=== PATIENT | male | born 1955 | race Caucasian/White ===

== ENCOUNTER → 2016-12-02 | Day surgery (SDC) | payer OTHER ==
[2016-11-20 09:38] VITALS: Ht 170.2 cm; Wt 106.8 kg
[~2016-12-02] VITALS: Ht 170.2 cm; Wt 106.8 kg
[~2016-12-02] MED LIST: ATOR-22 PO; ATROPINE SULFATE 0.1 MG/ML 5ML SYR IV PRN; BUPIVACAINE 0.5 % 5 MG/1 ML PF 10ML VIAL ONE; CEFAZOLIN 2000 MG/60 ML D5W IV SCH; EpHEDrine SULFATE INJ 50 MG/ML AMP IV PRN; FENTANYL CITRATE INJ 50 MCG/1 ML 2 ML VIAL IV PRN; FENTANYL CITRATE INJ 50 MCG/1 ML 2 ML VIAL ONE; FIBEPOW PO; HYDR-5688 PO; LACTATED RINGER'S 1000ML 1,000 ML IV SCH; LIDOCAINE HCL 1% 20 ML VIAL ONE; LIDOCAINE HCL 2% 2 ML VIAL (20MG/ML) ONE; LSN/10125 PO; MIDAZOLAM HCL 1 MG/ML 2ML VIAL ONE; NAPR1TAB9 PO; ONDANSETRON INJ 2 MG/ML 2 ML VIAL IV PRN; OXYCODONE/ACETAMINOPHEN 5-325 TAB PO PRN; PROPOFOL IV EMULSION 10 MG/ML 20 ML VIAL IV ONE; SODIUM CHLORIDE 0.9% 1000ML 1,000 ML IV SCH
--- NOTE | 2016-12-02 06:44 | History & Physical Bridge - [place] ---
H&P Re-Evaluation Bridge Note: I have examined the patient, reviewed the History & Physical and in the interval since the performance of the History & Physical I have noted the following changes of clinical significance: No changes noted
[2016-12-02 07:41] VITALS: TEMP 36.6
--- NOTE | 2016-12-02 07:41 | [facility] Post Operative Brief Note ---
Immediate Operative Summary Operative Date Dec 02, 2016. Pre-Operative Diagnosis Right Carpal Tunnel Syndrome Post-Operative Diagnosis Same Procedure(s) Performed Right Carpal Tunnel Release Surgeon Dr. Gil Spider Assembler Surgeon(s) Aileen Tolliver PA-C Estimated Blood Loss None Findings ABOVE Specimens None Anesthesia LOCAL IV SEDATION Complication(s) None Disposition
--- NOTE | 2016-12-02 07:44 | Discharge Instructions-SurgCtr ---
Discharge Instructions Date of Service Dec 02, 2016. Visit Reason for Visit: Right Wrist Carpal Tunnel Syndrome Discharge Discharge Diagnosis / Problem: SAME ABOVE Discharge Goals Goal(s): Decrease discomfort, Improve function Activity Recommendations Activity Limitations: as noted below Lifting Limitations: until after follow-up appointment Exercise/Sports Limitations: until after follow-up appointment Shower/Bathe: keep incision dry Anesthesia . Post Anesthesia Instructions: If you have had General Anesthesia or IV Sedation: * Do not drive today. * Resume driving when surgeon permits. * Do not make important decisions or sign legal documents today. * Call surgeon for: 1. Temperature elevations greater than 101 degrees F. 2. Uncontrollable pain. 3. Excessive bleeding. 4. Persistent nausea and vomiting. 5. Medication intolerance (nausea, vomiting or rash). * For nausea and vomiting use only clear liquids such as: tea, soda, bouillon until nausea subsides, then gradually increase diet as tolerated. * If you have any concerns or questions, call your surgeon's office. If physician is unavailable and it is an emergency, call 911 or go to the nearest emergency room. . Instructions / Follow-Up Instructions / Follow-Up MEDICATIONS: * Resume previous medications unless instructed otherwise by your surgeon. * Always take pain medication on a full stomach or with food to avoid upset stomach. * Do not drink alcohol or drive while taking narcotics. * Ibuprofen or Tylenol may be taken if narcotic not needed. SPECIAL CARE INSTRUCTIONS: __ None _X_ Keep extremity elevated and iced x 48 hours; apply ice 20-30 minutes 8-10 times/day. May remove at night. __ Sling __24 hrs/day __ Remove at night __ Shoulder Immobilizer __ 24 hrs/day __ Remove at night _X_ Dressing _X_ Maintain until seen in office, may shower with plastic over site __ Remove dressings in 24-48 hours and then may shower __ Cover incisions with band-aids after showering __ Do not remove steri-strips Call physician if chills or temperature rises above 102 degrees or pain unrelieved by prescribed pain medications at . . Diet Recommendations Home Diet: resume previous diet Procedures Procedures Performed: Right Carpal Tunnel Release Pending Studies Studies pending at discharge: no Medical Emergencies . Who to Call and When: Medical Emergencies: If at any time you feel your situation is an emergency, please call 911 immediately. . Non-Emergent Contact Non-Emergency issues call your: Primary Care Provider . . "Provider Documentation" section prepared by Derrell Tolliver. .
[2016-12-02 08:05] VITALS: BP 133/82; PULSE 74; O2SAT 96
--- NOTE | 2016-12-02 08:05 | Anesthesia Progress Nt - [facility] ---
Anesthesia Post Op Note Date & Time Dec 02, 2016 at 08:05 Vital Signs Pain Intensity: 0 Vital Signs Past 12 Hours Date Time Temp Pulse Resp B/P (MAP) Pulse Ox O2 Delivery O2 Flow Rate FiO2 12/02/16 07:41 36.6 80 16 129/69 (89) 94 Room Air 12/02/16 06:28 36.7 80 20 127/82 (97) 93 Room Air Notes Mental Status: alert / awake / arousable, participated in evaluation Pt Amnestic to Procedure: Yes Nausea / Vomiting: adequately controlled Pain: adequately controlled Airway Patency, RR, SpO2: stable & adequate BP & HR: stable & adequate Hydration State: stable & adequate Anesthetic Complications: no major complications apparent
--- NOTE | 2016-12-04 09:01 | OPERATIVE REPORT ---
DATE OF SURGERY: 12/02/16 PREOPERATIVE DIAGNOSIS: Right carpal tunnel syndrome. POSTOPERATIVE DIAGNOSIS: Same. PROCEDURE: Decompression median nerve release transverse carpal ligament, right wrist. SURGEON: Dr. Gil. CLAIMS CORRESPONDENCE CLERK: Derrell Tolliver PA-C. ANESTHESIOLOGIST: Dr. Moya. ANESTHESIA: Local with IV sedation. DRAINS: None. COMPLICATIONS: None. CONDITION: The patient tolerated the procedure well and returned to the recovery room in apparent satisfactory condition. INDICATIONS FOR SURGERY: Arden is a 61-year-old male who has had increasing pain, numbness, and tingling in his right hand consistent with carpal tunnel syndrome. We went over treatment options and elected to go ahead and proceed with surgery. Procedure, expected outcomes, side effects, and risks were all explained in detail. DESCRIPTION OF PROCEDURE: Patient was taken to the OR, at which time he was placed supine on the operating table. The right hand was prepped and draped in the usual sterile fashion for this surgery. The anticipated incision site was infiltrated with 1% Xylocaine without epinephrine. A forearm tourniquet was placed up to 250 mmHg. Incision was made vertically over the transverse carpal tunnel ligament area using loupe magnification dissected down and the transverse carpal ligament was divided with a 15-blade and tenotomy scissors. Small portion of the forearm fascia was divided also with the scissors. The wound was inspected and the nerve was freed up. No other masses or abnormalities were noted. Wound was then copiously irrigated and electrocautery was used to control the areas of bleeding. The skin was then closed with interrupted 4-0 nylon suture. Marcaine without epinephrine was placed in the skin edges. We placed a sterile dressing of Xeroform, 4 x 4, soft roll and an Richard bandage. Patient was returned back to recovery room in apparent satisfactory condition.
== END | disposition home or self-care (01) ==
LOC: X.SURG 06:13
PROVIDERS: ATTEND Orthopaedic Surgery
DX: G56.01 Carpal tunnel syndrome, right upper limb (principal); E78.00 Pure hypercholesterolemia, unspecified; I10 Essential (primary) hypertension

== ENCOUNTER 2024-04-19 12:38 | Inpatient (IN) ==
[2024-04-19 13:30] LABS: Basophils # (auto) 0.04 K/uL (0.00-0.20); Basophils % (auto) 0.2 %; Eosinophils # (auto) 0.04 K/uL (0.00-0.50); Eosinophils % (auto) 0.2 %; Hemoglobin 16.4 g/dl (14.0-18.0); Immature Granulocytes # (auto) 0.09 K/uL (0.01-0.20); Immature Granulocytes % (auto) 0.4 %; Lymphocytes % (auto) 3.9 %; Mean Corpuscular Hemoglobin 30.6 pg (25.0-34.0); Mean Corpuscular Hgb Conc 33.5 g/dL (32.0-36.0); Mean Corpuscular Volume 91.4 fL (80.0-100.0); Mean Platelet Volume 8.6 fL (9.4-12.4); Monocytes # (auto) 2.54 K/uL (0.11-0.59); Monocytes % (auto) 12.5 %; Neutrophils # (auto) 16.79 K/uL (1.40-6.50); Neutrophils % (auto) 82.8 %; Platelet Count 435 K/uL (130-400); RDW Coefficient of Variation 12.1 % (11.5-14.5); RDW Standard Deviation 40.2 fL (36.4-46.3); Red Blood Count 5.36 M/uL (4.70-6.10)
[2024-04-19 13:45] LABS: Alanine Aminotransferase 19 U/L (7-52); Albumin Globulin Ratio 1.1 (0.9-2); Albumin Level 4.2 gm/dl (3.4-5.0); Alkaline Phosphatase 75 U/L (34-104); Anion Gap 10 (3-11); Aspartate Aminotransferase 15 U/L (13-39); BUN Creatinine Ratio 22.5 (10-20); Bilirubin,Total 1.2 mg/dl (0.2-1.0); Blood Urea Nitrogen 18 mg/dl (6-23); Calcium 10.3 mg/dl (8.6-10.3); Carbon Dioxide 24 mmol/L (21-32); Chloride 100 mmol/L (98-107); Globulin 3.8 gm/dl (2.5-4.0); Glucose 116 mg/dl (70-99(Fasting)); Potassium 4.9 mmol/L (3.5-5.1); Sodium 134 mmol/L (136-145)
[2024-04-19 14:15] LABS: Influenza A virus by PCR Negative (Neg); Influenza B virus by PCR Negative (Neg); RSV by PCR Negative (Neg); SARS CoV2 RNA(COVID-19) Ceph NEGATIVE (Negative)
[2024-04-19] MEDS: fentaNYL citrate PF 100 MCG/2 ML VIAL IV STA (14:23)
[2024-04-19] MEDS: SODIUM CHLORIDE 0.9% 1,000 ML IV ONE (14:23)
--- NOTE | 2024-04-19 14:31 | Emergency Department Note ---
Impression & Plan Weakness, Acute pain of left hip, Acute pain of right knee, Bilateral shoulder pain, Ambulatory dysfunction ED Provider Note Provider: Christian Manjarrez MD DATE OF SERVICE: 04/19/2024 CHIEF COMPLAINT: Ambulatory issues, joint pain HISTORY OF PRESENT ILLNESS: Patient is a 69-year-old gentleman past medical history of hypertension, hyperlipidemia, bilateral hip replacement, left knee replacement in the past with Dr. Anderson presenting here today via ambulance from home. According to and the patient initially he was here just over 2 weeks ago for pain in the right wrist. Saw orthopedics after ER evaluation with negative x-ray and had steroid injection as was believed to be more arthritic in nature. Patient completed Medrol Dosepak last week. Lasted 3 to 4 days worsening pain in the left hip as well as the right knee and to some degree the left knee. No falls but significant difficulty even ambulating prickly worse this morning. Has been using oxycodone at night to help with the pain so he could sleep. reports possibly a fever of 101 this morning but she had an old thermometer. Patient denies cough or cold symptoms or trouble breathing. Denies abdominal pain or nausea or vomiting. Some pain in left hip but no testicular/genital pain reported. Some constipation for several days as has been using pain medicine and decreased appetite. No vomiting again. Denies chest pain report pains in bilateral shoulder and clavicle is worse with some movement. No rashes. No wounds reported. Is able to bend the right knee some now but it still hurts and has a bit of swelling here. No ankle swelling or pain. No pain in the left arm reported. A bit of posterior headache into the neck. No confusion reported. Does report left knee replacement in the past to the right knee has had ACL repair and arthroscopy/meniscal repair in the past. Bilateral hip repair in the past with Dr. Anderson. PAST MEDICAL HISTORY: As noted above MEDICATIONS: Reviewed home medications SOCIAL HISTORY: lives at home PHYSICAL EXAM: GENERAL: alert and oriented in no acute distress on stretcher Head: normocephalic and atraumatic EYES: No injection, discharge or icterus. EOMI. NECK: Trachea midline. Supple without significant tenderness. ENT: Mucous membranes pink and moist. LUNGS: Airway patent. No retractions. Breath sounds clear with good air entry bilaterally. HEART: Regular tachycardic rate and rhythm. No chest wall tenderness with some mild tenderness of the bilateral clavicles to shoulders. ABDOMEN: Soft and non-tender, without guarding or rebound. SKIN: Acyanotic, warm, dry, without rashes EXTREMITIES: Without swelling or deformity of the lower legs with healed scars of the bilateral knees mild swelling and pain with ROM of the right knee but no redness or wound appreciable. No significant calf tenderness or swelling. No tenderness of the left arm wrist or hand. Right wrist in a Velcro brace and patient is having some difficulty with machine hoop maker here and little bit of numbness in these fingers by report. No evidence of compartment syndrome on exam. Some slight bilateral pain in the shoulders prickly with movement. NEUROLOGICAL: No aphasia. No facial droop or slurred speech. Sensation to gross touch normal other than reported some mildly diminished sensation in the right fingers and thumb. Limited mobility and strength of the right wrist left hip and right knee due to pain of these joints. EK bpm. Sinus tachycardia. No PVC or PAC. No acute ST segment elevation or depression with left axis and QTc of 454. CONTINUOUS CARDIAC MONITORING: was ordered and showed a heart rate of 100-110s bpm in sinus tachycardia Patient's laboratory studies and imaging reviewed. Differential includes Infection, dehydration, metabolic abnormality, hypo/hyperglycemia, electrolyte disturbance, anemia, hypoxia, cardiac sources, intracerebral event, toxicologic, neurologic, as well as other pathologies. IMPRESSION/MEDICAL DECISION MAKING: Patient without trauma having scattered joint type pains. Completed steroids a week ago but still with significant leukocytosis of 20 here. Do question if there is an occult infectious process at play. Negative COVID RSV flu testing. Denies URI symptoms. Benign abdomen on exam. A bit of swelling but no redness to the right knee is some pain with motion here. Some pain with motion of the left hip as well with prior replacement. Will obtain x-rays here as well as a chest x-ray given some of the clavicular pain. Does not appear confused or altered. Doubt CVA or meningitis at this time. Again with a leukocytosis lactate, blood cultures, UA, Lyme test, inflammatory markers, and procalcitonin added to look for an infectious etiology. Symptoms could simply be muscular but given the significant discomfort she is having even with oxycodone unable to ambulate feel that broad-spectrum antibiotic coverage till further differentiation and further observation with his ambulatory dysfunction is indicated. Discussed with patient and and they are in agreement. Given a liter of normal saline here for fluid hydration. He is afebrile here but again somewhat tachycardic. ESR CRP are both significantly elevated. Again with the multiple complaints of wrist and right knee and left hip pain unsure which of these joints may be possibly issue or if it simply a symptom of systemic illness. Question bacteremia. Will cover empirically with broad-spectrum IV ceftriaxone. Blood cultures pending. Discussed with the hospitalist team for further care here. Low suspicion for DVT or PE at this time. DIAGNOSIS: Joint pain, weakness, ambulatory dysfunction DISPOSITION: Hospitalist will evaluate Patient was agreeable with this plan. Past Med/Surg History Problem List (Updated 04/19/24 @ 21:13 by Christian Manjarrez M.D.) Ambulatory dysfunction (Acute) Bilateral shoulder pain (Acute) Acute pain of right knee (Acute) Acute pain of left hip (Acute) Weakness (Acute) Rotator cuff tear arthropathy of left shoulder Synovitis of right wrist Status post right hip replacement (~01/2024) Osteoarthritis of right hip Status post carpal tunnel release Status post left hip replacement Status post left knee replacement Encounter for pre-operative examination HLD (hyperlipidemia) HTN (hypertension) Medical History Osteoarthritis Type 2 diabetes mellitus Noted per PCP/[facility] records HGBA1C 11/11/23 6.8% Obesity HLD (hyperlipidemia) HTN (hypertension) Surgical History Status post left knee replacement (07/2021) Status post left hip replacement Left MAMI, SAB at [facility] (10/27/22) History of carpal tunnel release of both wrists right 2019, left 2023 History of arthroscopy (2021) R/L knees History of repair of rotator cuff R/L History of colonoscopy Family History Father Diabetes Other No family history of adverse response to anesthesia Social History Smoking Status: Never smoker Tobacco Type: Smokeless Tobacco (Dip or Chew) Second Hand Exposure: No; Do You Dip or Chew Tobacco: Yes; Tobacco Cessation Education Requested by Patient: No Hx Alcohol Use: No Hx Substance Use: No Preferred Language: Austrian Communication Ability: Effective Poker Machine Attendant Required: No Beliefs That Will Affect Care: None Current Living Situation: Spouse current occupational status: retired Other Information That Helps Us Care for You: No Feels Safe at Home: Yes Safety Concerns: Feels Safe At This Time Assistive Devices: Glasses Allergies Allergies Allergy/AdvReac Type Severity Reaction Status Date / Time No Known Allergies Allergy Verified 02/01/24 07:52 Home Meds Home Medications Medication Instructions Recorded Confirmed atorvastatin 20 mg tablet 20 mg PO QAM 11/29/20 04/19/24 lisinopril 10 1 tab PO QAM 11/29/20 04/19/24 mg-hydrochlorothiazide 12.5 mg tablet psyllium husk 3.4 gram/5.4 gram 1 tbsp PO QAM PRN Constipation 11/29/20 04/19/24 oral powder (Metamucil) polyethylene glycol 3350 17 gram 17 g PO DAILY 02/01/24 04/19/24 oral powder packet (Miralax) Previous Rx's Medication Instructions Recorded amoxicillin 500 mg tablet 2,000 mg (4 x 500 mg) PO ONCE PRN 11/06/21 prophylaxis #4 tabs oxycodone 5 mg tablet 5 mg PO Q6H PRN pain #30 tabs 02/01/24 Results & Data (ED) Vital Signs Vital Signs - 24 hr 04/19/24 12:48 04/19/24 14:33 04/19/24 15:15 Temperature 36.5 C Temperature Source Temporal Artery Scan Pulse Rate 105 H 107 H Pulse Rate [Right Finger] 102 H Pulse Rhythm [Right Finger] Regular Pulse Strength [Right Finger] Normal Respiratory Rate 20 21 Respiratory Effort / Characteristics Non-Labored Spontaneous Non-Labored Respiratory Depth Normal Normal Respiratory Pattern Regular Blood Pressure 120/82 Blood Pressure [Right Arm] 142/97 H Blood Pressure Mean 94 Blood Pressure Mean [Right Arm] 112 Blood Pressure Position [Right Arm] Lying Pulse Oximetry 97 96 Oxygen Delivery Method Room Air Room Air Sepsis Recent Fever Within 48 Hours No Sepsis New/Unexplained Change in Mental Status No Sepsis Action Taken by Nursing No Action Required Laboratory Data 04/19/24 13:05 04/19/24 13:05 Lab Results 04/19/24 04/19/24 04/19/24 Range/Units 13:05 13:06 14:38 WBC 20.30 H (4.8-10.8) K/ul RBC 5.36 (4.70-6.10) M/uL Hgb 16.4 (14.0-18.0) g/dl Hct 49.0 (42.0-52.0) % MCV 91.4 (80.0-100.0) fL MCH 30.6 (25.0-34.0) pg MCHC 33.5 (32.0-36.0) g/dL RDW Std Deviation 40.2 (36.4-46.3) fL RDW Coeff of Delores 12.1 (11.5-14.5) % Plt Count 435 H (130-400) K/uL MPV 8.6 L (9.4-12.4) fL Immature Gran % (Auto) 0.4 % Neut % (Auto) 82.8 % Lymph % (Auto) 3.9 % [place] % (Auto) 12.5 % Eos % (Auto) 0.2 % Baso % (Auto) 0.2 % Neut # (Auto) 16.79 H (1.40-6.50) K/uL Lymph # (Auto) 0.80 L (1.20-3.40) K/uL [place] # (Auto) 2.54 H (0.11-0.59) K/uL Eos # (Auto) 0.04 (0.00-0.50) K/uL Baso # (Auto) 0.04 (0.00-0.20) K/uL Immature Gran # (Auto) 0.09 (0.01-0.20) K/uL ESR 113 H (0-20) mm/hr Sodium 134 L (136-145) mmol/L Potassium 4.9 (3.5-5.1) mmol/L Chloride 100 (98-107) mmol/L Carbon Dioxide 24 (21-32) mmol/L Anion Gap 10 (3-11) BUN 18 (6-23) mg/dl Creatinine 0.80 (0.6-1.4) mg/dl Est Cr Clr Drug Dosing Not Reportable eGFR 96.40 BUN/Creatinine Ratio 22.5 H (10-20) Glucose 116 H (70-99(Fasting)) mg/dl Lactate 1.6 (0.4-2.0) mmol/L Calcium 10.3 (8.6-10.3) mg/dl Total Bilirubin 1.2 H (0.2-1.0) mg/dl AST 15 (13-39) U/L ALT 19 (7-52) U/L Alkaline Phosphatase 75 (34-104) U/L Total Creatine Kinase 13 L (30-223) U/L Troponin I High Sens 5.6 (0-20) pg/ml C-Reactive Protein 24.83 H (0-0.5) mg/dl Total Protein 8.0 (6.0-8.3) gm/dl Albumin 4.2 (3.4-5.0) gm/dl Globulin 3.8 (2.5-4.0) gm/dl Albumin/Globulin Ratio 1.1 (0.9-2) Procalcitonin 0.23 (0-0.5) ng/ml Lyme Disease Screen Negative (Negative) SARS-CoV-2 (PCR) NEGATIVE (Negative) Influenza Type A (PCR) Negative (Neg) Influenza Type B (PCR) Negative (Neg) RSV (RT-PCR) Negative (Neg) Administered Medications Enoxaparin Sodium (Enoxaparin Inj 40 Mg/0.4 Ml Syr) 40 mg SQ Q24H SEAN Stop: 05/19/24 17:59 Last Admin: 04/19/24 18:16 Dose: 40 mg Documented By: JONATHON Daptomycin 350 mg/ Syringe 7 mls @ 2.5 mls/min IV Q24H [facility]; Protocol Stop: 04/21/24 17:59 Last Admin: 04/19/24 18:17 Dose: 2.5 mls/min Documented By: JONATHON Cefepime HCl (Maxipime 2000mg) 2,000 mg in 20 mls @ 5 mls/min IV Q8H SEAN; Protocol Stop: 04/21/24 17:29 Last Admin: 04/19/24 17:31 Dose: 5 mls/min Documented By: JONATHON Morphine Sulfate (Morphine Sulfate 2 Mg/Ml Carp) 1 mg IV Q3H PRN PRN Reason: Pain Stop: 05/03/24 15:57 Last Admin: 04/19/24 17:39 Dose: 1 mg Documented By: JONATHON Discontinued Medications Fentanyl Citrate (Fentanyl Citrate Pf 100 Mcg/2 Ml Vial) 50 mcg IV NOW STA Stop: 04/19/24 14:15 Last Admin: 04/19/24 14:23 Dose: 50 mcg Documented By: NATALIE Sodium Chloride (Nss) 1,000 mls @ 999 mls/hr IV .Q1H1M ONE Stop: 04/19/24 15:16 Last Infusion: 04/19/24 15:23 Dose: Infused Documented By: Admin: 04/19/24 14:23 Dose: 999 mls/hr Documented By: NATALIE Ceftriaxone Sodium (Rocephin) 2,000 mg in 50 mls @ 100 mls/hr IV NOW STA Stop: 04/19/24 14:53 Last Infusion: 04/19/24 16:05 Dose: Infused Documented By: Admin: 04/19/24 15:34 Dose: 100 mls/hr Documented By: JONATHON Imaging Data Radiologist's Impression: Chest X-Ray 04/19/24 14:14 XR chest 1V not portable HISTORY: 69 years-old Male calvicle pain acute pain of the right upper chest COMPARISON: Chest radiograph 01/04/2024 TECHNIQUE: AP view of the chest FINDINGS: Cardiomediastinal and hilar silhouettes are unchanged. The lungs appear clear. No pneumothorax or pleural effusion. The clavicles appear intact. Ill-defined linear lucency projects over the anteromedial aspect of the right first rib. IMPRESSION: 1. No acute cardiopulmonary abnormality. 2. No acute clavicular fracture identified. 3. Ill-defined linear lucency projects over the anteromedial aspect of the right first rib which is likely projectional. Findings should be correlated with point tenderness to exclude an acute nondisplaced fracture. ACT 112: Negative or not required by law. The above report was generated using voice recognition software. It may contain grammatical, syntax or spelling errors. Electronically signed by: Josue Aceves M.D. 04/19/2024 3:21 PM Hip/Pelvis X-Ray 04/19/24 14:14 XR hip LT 2V w pelvis HISTORY: 69 years-old Male pain acute pelvic and left hip pain COMPARISON: 02/01/2024 TECHNIQUE: AP view of the pelvis with 2 views of the left hip FINDINGS: Bilateral hip arthroplasties demonstrate aspect alignment. No acute fracture or evidence of hardware loosening. [id number] degeneration of the SI joints. IMPRESSION: 1. No acute fracture or dislocation. 2. Unremarkable appearance of the hip arthroplasties. ACT 112: Negative or not required by law. The above report was generated using voice recognition software. It may contain grammatical, syntax or spelling errors. Electronically signed by: Josue Aceves M.D. 04/19/2024 3:25 PM Knee X-Ray 04/19/24 14:14 XR knee RT 3V HISTORY: 69 years-old Male pain acute right knee pain COMPARISON: None TECHNIQUE: 3 views of the right knee FINDINGS: Chondrocalcinosis. [id number] medial with moderate lateral and severe patellofemoral compartment osteoarthritis. Moderate-sized joint effusion. Arterial calcifications. No acute fracture, dislocation or osseous erosion. IMPRESSION: 1. No acute fracture or dislocation. 2. Chondrocalcinosis with tricompartmental osteoarthritis, severe within the patellofemoral joint. 3. Moderate sized joint effusion. ACT 112: Negative or not required by law. The above report was generated using voice recognition software. It may contain grammatical, syntax or spelling errors. Electronically signed by: Josue Aceves M.D. 04/19/2024 3:26 PM Discharge Plan Visit Data Chief Complaint: Illness Stated Complaint: Illness ED Provider: Christian Manjarrez Discharge Problem: Weakness, Acute pain of left hip, Acute pain of right knee, Bilateral shoulder pain, Ambulatory dysfunction Patient Disposition: Admitted As Inpatient Discharge Instructions Interventions: ED Discharge Assessment Last Done: 04/19/24 17:05
[2024-04-19 15:09] LABS: C Reactive Protein 24.83 mg/dl (0-0.5)
[2024-04-19 15:16] LABS: Troponin I High Sensitivity 5.6 pg/ml (0-20)
[2024-04-19 15:17] LABS: Procalcitonin 0.23 ng/ml (0-0.5)
--- NOTE | 2024-04-19 15:22 | XRay Report ---
XR chest 1V not portable HISTORY: 69 years-old Male calvicle pain acute pain of the right upper chest COMPARISON: Chest radiograph 01/04/2024 TECHNIQUE: AP view of the chest FINDINGS: Cardiomediastinal and hilar silhouettes are unchanged. The lungs appear clear. No pneumothorax or ple ural effusion. The clavicles appear intact. Ill-defined linear lucency projects over the anteromedial aspect of the right first rib. IMPRESSION: 1. No acute cardiopulmonary abnormality. 2. No acute clavicular fracture identified. 3. Ill-defined linear lucency projects over the anteromedial aspect of the right first rib which is l ikely projectional. Findings should be correlated with point tenderness to exclude an acute nondispla gus fracture. ACT 112: Negative or not required by law. The above report was generated using voice recognition software. It may contain grammatical, syntax o r spelling errors. Electronically signed by: Josue Aceves M.D. 04/19/2024 3:21 PM
--- NOTE | 2024-04-19 15:26 | XRay Report ---
XR hip LT 2V w pelvis HISTORY: 69 years-old Male pain acute pelvic and left hip pain COMPARISON: 02/01/2024 TECHNIQUE: AP view of the pelvis with 2 views of the left hip FINDINGS: Bilateral hip arthroplasties demonstrate aspect alignment. No acute fracture or evidence of hardware loosening. [id number] degeneration of the SI joints. IMPRESSION: 1. No acute fracture or dislocation. 2. Unremarkable appearance of the hip arthroplasties. ACT 112: Negative or not required by law. The above report was generated using voice recognition software. It may contain grammatical, syntax o r spelling errors. Electronically signed by: Josue Aceves M.D. 04/19/2024 3:25 PM
--- NOTE | 2024-04-19 15:27 | XRay Report ---
XR knee RT 3V HISTORY: 69 years-old Male pain acute right knee pain COMPARISON: None TECHNIQUE: 3 views of the right knee FINDINGS: Chondrocalcinosis. [id number] medial with moderate lateral and severe patellofemoral compartmen t osteoarthritis. Moderate-sized joint effusion. Arterial calcifications. No acute fracture, dislocat ion or osseous erosion. IMPRESSION: 1. No acute fracture or dislocation. 2. Chondrocalcinosis with tricompartmental osteoarthritis, severe within the patellofemoral joint. 3. Moderate sized joint effusion. ACT 112: Negative or not required by law. The above report was generated using voice recognition software. It may contain grammatical, syntax o r spelling errors. Electronically signed by: Josue Aceves M.D. 04/19/2024 3:26 PM
[2024-04-19] MEDS: cefTRIAXone SODIUM 2,000 MG/50 ML BAG IV STA (15:34)
[2024-04-19 15:43] LABS: Lyme Screen Rflx Confirmation Negative (Negative)
--- NOTE | 2024-04-19 16:33 | History & Physical Report ---
Date of Service April 19, 2024 Assessment & Plan (1) Osteoarthritis: (2) Type 2 diabetes mellitus: (3) HLD (hyperlipidemia): (4) HTN (hypertension): (5) Status post right hip replacement: (6) Status post left hip replacement: (7) HLD (hyperlipidemia): (8) HTN (hypertension): Plan Assessment and plan: Generalized joint pain R wrist/L hip/R knee paineffusion Suspected septic arthritis: S/p steroid injection of r wrist on 04/05, completed Medrol Dosepak 1 week ago Follow[address] with Dr. Anderson outpatient, WBC elevated at 20, Tmax 101 Start IV Dapto/cefepime, consult Ortho, x-rays negative for acute fractures Blood cultures pending, n.p.o. after midnight for possible washout Takes oxycodone at home for pain, morphine for severe pain ordered Hx HTN/HLD: Hold statin/lisinopril/HCTZ for now A total of 60 minutes was spent on chart review/facilitation of plan of care/reviewing diagnostic data/discussion with consultants Full code DVT prophylaxis: Lovenox History of Present Illness Chief Complaint: Right wrist pain, left hip pain Primary Care Provider: Ramiro Gonzalez MD The patient is a 61-year-old male with a past medical history of HTN/HLD/osteoarthritis right hip, s/p left hip replacement, s/p left knee replacement who presents to the ED on 04/19/2024 with complaints of right wrist pain, left hip pain and right knee pain that has slowly began to worsen. He follows with orthopedics outpatient and reports seeing him in the office and being started on Medrol Dosepak which she finished about a week ago with no improvement in symptoms. Reports his right thumb is numb and he is unable to bend his fingers completely. He also reports a fever at home. Tmax 101. Denies any nausea/vomiting/diarrhea. Denies any abdominal pain. Denies any recent travel/sore throat. Does report some neck stiffness. Reports if his pain did not improve, orthopedics was considering a right wrist MRI. On arrival to the ED, labs are remarkable for WBC 20, platelets 435, neutrophils 16, ESR 113, CRP 24, Lyme screening negative, COVID/flu/RSV negative. The patient will be admitted for further infectious workup Allergies Allergy/AdvReac Type Severity Reaction Status Date / Time No Known Allergies Allergy Verified 02/01/24 07:52 Home Medications Medication Instructions Recorded Confirmed Type atorvastatin 20 mg tablet 20 mg PO QAM 11/29/20 04/19/24 History lisinopril 10 1 tab PO QAM 11/29/20 04/19/24 History mg-hydrochlorothiazide 12.5 mg tablet psyllium husk 3.4 gram/5.4 gram 1 tbsp PO QAM PRN Constipation 11/29/20 04/19/24 History oral powder (Metamucil) amoxicillin 500 mg tablet 2,000 mg (4 x 500 mg) PO ONCE PRN 11/06/21 04/19/24 Rx prophylaxis #4 tabs oxycodone 5 mg tablet 5 mg PO Q6H PRN pain #30 tabs 02/01/24 04/19/24 Rx polyethylene glycol 3350 17 gram 17 g PO DAILY 02/01/24 04/19/24 History oral powder packet (Miralax) Past Med/Surg History Problem List (Updated 04/17/24 @ 00:06 by Dwain Weinstein) Rotator cuff tear arthropathy of left shoulder Synovitis of right wrist Status post right hip replacement (~01/2024) Osteoarthritis of right hip Status post carpal tunnel release Status post left hip replacement Status post left knee replacement Encounter for pre-operative examination HLD (hyperlipidemia) HTN (hypertension) Medical History Osteoarthritis Type 2 diabetes mellitus Noted per PCP/[facility] records HGBA1C 11/11/23 6.8% Obesity HLD (hyperlipidemia) HTN (hypertension) Surgical History Status post left knee replacement (07/2021) Status post left hip replacement Left MAMI, SAB at [facility] (10/27/22) History of carpal tunnel release of both wrists right 2019, left 2023 History of arthroscopy (2021) R/L knees History of repair of rotator cuff R/L History of colonoscopy Family History Father Diabetes Other No family history of adverse response to anesthesia Social History Smoking Status: Never smoker Tobacco Type: Smokeless Tobacco (Dip or Chew) Second Hand Exposure: No; Do You Dip or Chew Tobacco: Yes (1/4 can per day (advised none DOS)); Hx Alcohol Use: Yes Alcohol type: beer and hard liquor Hx Substance Use: No Preferred Language: Bhutanese Communication Ability: Effective 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 Beliefs That Will Affect Care: None Current Living Situation: Spouse current occupational status: retired Feels Safe at Home: Yes Assistive Devices: None Review of Systems Review of Systems: All systems reviewed & are unremarkable except as noted in HPI & below Physical Exam Constitutional: WD/WN, vitals as above Eyes: PERRL, conjunctivae normal, anicteric sclerae ENMT: external ear and nose normal, oropharynx normal Neck: trachea midline, no thyromegaly Respiratory: normal respiratory effort, lungs clear to auscultation Cardiovascular: RRR, no murmur, no edema Gastrointestinal (Abdomen): normal bowel sounds, soft, nontender, no hepatosplenomegaly Musculoskeletal: no cyanosis or clubbing, extremities motor strength 5/5 (Right wrist swelling, right knee swelling) Skin: no rashes, warm and dry Neurologic: PERRL, EOMI, accommodation nl, no face palsy, no dysarthria Lymphatic: no cervical or axillary lymphadenopathy Results & Data Results & Data Vital Signs (Past 12 Hours) Vital Signs Temp Pulse Pulse Resp BP BP Pulse Ox 04/19/24 15:15 102 H 21 142/97 H 96 04/19/24 14:33 107 H 04/19/24 12:48 36.5 C 105 H 20 120/82 97 O2 Del Method 04/19/24 15:15 Room Air 04/19/24 14:33 04/19/24 12:48 Room Air Diagnostic Findings Laboratory Results WBC 20.30 K/ul (4.8-10.8) H 04/19/24 13:05 RBC 5.36 M/uL (4.70-6.10) 04/19/24 13:05 Hgb 16.4 g/dl (14.0-18.0) 04/19/24 13:05 Hct 49.0 % (42.0-52.0) 04/19/24 13:05 MCV 91.4 fL (80.0-100.0) 04/19/24 13:05 MCH 30.6 pg (25.0-34.0) 04/19/24 13:05 MCHC 33.5 g/dL (32.0-36.0) 04/19/24 13:05 RDW Std Deviation 40.2 fL (36.4-46.3) 04/19/24 13:05 RDW Coeff of Delores 12.1 % (11.5-14.5) 04/19/24 13:05 Plt Count 435 K/uL (130-400) H 04/19/24 13:05 MPV 8.6 fL (9.4-12.4) L 04/19/24 13:05 Immature Gran % (Auto) 0.4 % 04/19/24 13:05 Neut % (Auto) 82.8 % 04/19/24 13:05 Lymph % (Auto) 3.9 % 04/19/24 13:05 [place] % (Auto) 12.5 % 04/19/24 13:05 Eos % (Auto) 0.2 % 04/19/24 13:05 Baso % (Auto) 0.2 % 04/19/24 13:05 Neut # (Auto) 16.79 K/uL (1.40-6.50) H 04/19/24 13:05 Lymph # (Auto) 0.80 K/uL (1.20-3.40) L 04/19/24 13:05 [place] # (Auto) 2.54 K/uL (0.11-0.59) H 04/19/24 13:05 Eos # (Auto) 0.04 K/uL (0.00-0.50) 04/19/24 13:05 Baso # (Auto) 0.04 K/uL (0.00-0.20) 04/19/24 13:05 Immature Gran # (Auto) 0.09 K/uL (0.01-0.20) 04/19/24 13:05 ESR 113 mm/hr (0-20) H 04/19/24 14:38 Sodium 134 mmol/L (136-145) L 04/19/24 13:05 Potassium 4.9 mmol/L (3.5-5.1) 04/19/24 13:05 Chloride 100 mmol/L (98-107) 04/19/24 13:05 Carbon Dioxide 24 mmol/L (21-32) 04/19/24 13:05 Anion Gap 10 (3-11) 04/19/24 13:05 BUN 18 mg/dl (6-23) 04/19/24 13:05 Creatinine 0.80 mg/dl (0.6-1.4) 04/19/24 13:05 Est Cr Clr Drug Dosing Not Reportable 04/19/24 13:05 eGFR 96.40 04/19/24 13:05 BUN/Creatinine Ratio 22.5 (10-20) H 04/19/24 13:05 Glucose 116 mg/dl (70-99(Fasting)) H 04/19/24 13:05 Lactate 1.6 mmol/L (0.4-2.0) 04/19/24 14:38 Calcium 10.3 mg/dl (8.6-10.3) 04/19/24 13:05 Total Bilirubin 1.2 mg/dl (0.2-1.0) H 04/19/24 13:05 AST 15 U/L (13-39) 04/19/24 13:05 ALT 19 U/L (7-52) 04/19/24 13:05 Alkaline Phosphatase 75 U/L (34-104) 04/19/24 13:05 Total Creatine Kinase 13 U/L (30-223) L 04/19/24 14:38 Troponin I High Sens 5.6 pg/ml (0-20) 04/19/24 14:38 C-Reactive Protein 24.83 mg/dl (0-0.5) H 04/19/24 14:38 Total Protein 8.0 gm/dl (6.0-8.3) 04/19/24 13:05 Albumin 4.2 gm/dl (3.4-5.0) 04/19/24 13:05 Globulin 3.8 gm/dl (2.5-4.0) 04/19/24 13:05 Albumin/Globulin Ratio 1.1 (0.9-2) 04/19/24 13:05 Procalcitonin 0.23 ng/ml (0-0.5) 04/19/24 14:38 Lyme Disease Screen Negative (Negative) 04/19/24 14:38 SARS-CoV-2 (PCR) NEGATIVE (Negative) 04/19/24 13:06 Influenza Type A (PCR) Negative (Neg) 04/19/24 13:06 Influenza Type B (PCR) Negative (Neg) 04/19/24 13:06 RSV (RT-PCR) Negative (Neg) 04/19/24 13:06 Impressions Chest X-Ray 04/19/24 14:14 XR chest 1V not portable HISTORY: 69 years-old Male calvicle pain acute pain of the right upper chest COMPARISON: Chest radiograph 01/04/2024 TECHNIQUE: AP view of the chest FINDINGS: Cardiomediastinal and hilar silhouettes are unchanged. The lungs appear clear. No pneumothorax or pleural effusion. The clavicles appear intact. Ill-defined linear lucency projects over the anteromedial aspect of the right first rib. IMPRESSION: 1. No acute cardiopulmonary abnormality. 2. No acute clavicular fracture identified. 3. Ill-defined linear lucency projects over the anteromedial aspect of the right first rib which is likely projectional. Findings should be correlated with point tenderness to exclude an acute nondisplaced fracture. ACT 112: Negative or not required by law. The above report was generated using voice recognition software. It may contain grammatical, syntax or spelling errors. Electronically signed by: Josue Aceves M.D. 04/19/2024 3:21 PM Hip/Pelvis X-Ray 04/19/24 14:14 XR hip LT 2V w pelvis HISTORY: 69 years-old Male pain acute pelvic and left hip pain COMPARISON: 02/01/2024 TECHNIQUE: AP view of the pelvis with 2 views of the left hip FINDINGS: Bilateral hip arthroplasties demonstrate aspect alignment. No acute fracture or evidence of hardware loosening. Espp-ge-[id number] degeneration of the SI joints. IMPRESSION: 1. No acute fracture or dislocation. 2. Unremarkable appearance of the hip arthroplasties. ACT 112: Negative or not required by law. The above report was generated using voice recognition software. It may contain grammatical, syntax or spelling errors. Electronically signed by: Josue Aceves M.D. 04/19/2024 3:25 PM Knee X-Ray 04/19/24 14:14 XR knee RT 3V HISTORY: 69 years-old Male pain acute right knee pain COMPARISON: None TECHNIQUE: 3 views of the right knee FINDINGS: Chondrocalcinosis. Ajix-ma-frqiidhv medial with moderate lateral and severe patellofemoral compartment osteoarthritis. Moderate-sized joint effusion. Arterial calcifications. No acute fracture, dislocation or osseous erosion. IMPRESSION: 1. No acute fracture or dislocation. 2. Chondrocalcinosis with tricompartmental osteoarthritis, severe within the patellofemoral joint. 3. Moderate sized joint effusion. ACT 112: Negative or not required by law. The above report was generated using voice recognition software. It may contain grammatical, syntax or spelling errors. Electronically signed by: Josue Aceves M.D. 04/19/2024 3:26 PM Code Status & VTE Plan VTE Prophylaxis Plan VTE Prophylaxis will be ordered: Yes Supervising Physician Co-Signing Physician Notes 69-year-old male with PMH of HTN, HLD, osteoarthritis right hip,Status post bilateral hip replacement, status post left knee replacement presented to the ED with complaint of acute onset and progressively worsening left hip pain, right knee pain and bilateral clavicular pain. He reports getting injection into his right wrist about 2 weeks ago followed by Medrol Dosepak, he reports minimal improvement in the pain but cannot make a fist and he still has numb sensation in the left thumb. He reports having left hip pain since about 3 days, right knee pain since today, bilateral clavicular pain since yesterday. He reports feeling chills, reports having fever up to 101F. Labs and imagings reviewed. WBC elevated at 20.30K, ESR 113, CRP 24.83, procalcitonin 0.23, Lyme screen negative. CXR with no acute clavicular fracture, no acute finding. Left hip x-ray with pelvis: No acute fracture or dislocation. Unremarkable appearance of the hip arthroplasties. Right knee x-ray: No acute fracture or dislocation, moderate size joint effusion noted. Chondrocalcinosis with tricompartmental osteoarthritis noted. Concern for septic joint, ro crystal arthropathies (will likely need arthrocentesis vs washout). Lyme screen negative will initiate Dapto and ce fepime, get CPK level, hold statin, follow admitting blood culture. Consult orthopedics. Further evaluation/testing pending blood culture results. On exam: GENERAL: Alert and oriented x3. NAD, on RA. appears ill/weak/frail. HEENT: No pallor, no icterus. Pupils equal, round and reactive to light. Oral mucosa moist. NECK: No JVD, no neck masses. b/l sternoclavicular joint tenderness noted. no redness. HEART: S1 and S2 heard. Regular rate and rhythm. tachy in 100s. No murmur, no gallop. RESPIRATORY SYSTEM: Normal AP diameter. No accessory muscle use. No wheezing, no crackles. ABDOMEN: Soft, bowel sounds present, nontender, no distention. CENTRAL NERVOUS SYSTEM: No facial droop. Speech is clear. Obeys simple commands. Moves extremities. EXTREMITIES: No edema, no erythema seen. Lt hip tender. Rt knee swollen/tender/painful rom I have seen and examined the patient and have discussed the case with the provider above. I agree with the assessment and plan as stated. Time spent : 35 min.
[2024-04-19] MEDS ORDERED: CEFEPIME 2 GM VIAL IV SCH (17:04)
[2024-04-19] MEDS ORDERED: Patient's HEIGHT &/or WEIGHT Needed SCH (17:30)
[2024-04-19] MEDS: CEFEPIME 2000MG 2,000 MG/20 ML SYR IV SCH (17:31)
[2024-04-19] MEDS: MoRPHine SULFATE 2 MG/ML CARP IV PRN (17:39)
[2024-04-19] MEDS: ENOXAPARIN INJ 40 MG/0.4 ML SYR SQ SCH (18:16)
[2024-04-19] MEDS: DAPTOmycin 350 MG in SYRINGE 0 ML IV SCH (18:17)
[2024-04-19 19:38] LABS: Appearance Urine Clear (Clear); Bacteria Urine Automated None Seen (None Seen); Bilirubin Urine Negative (Negative); Blood Urine Negative (Negative); Color Urine Dark Yellow; Epithelial Cell Urine Auto 0-2 /hpf (0-2); Glucose Urine UA Negative (Negative); Ketones Urine 1+ (Negative); Leukocyte Esterase Urine Negative (Negative); Mucus Urine Present (None Prsent); Nitrite Urine Negative (Negative); Protein Urine Trace (Negative); RBC Urine Automated 0-2 /hpf (0-2); Specific Gravity Urine 1.026 (1.000-1.030); Urobilinogen Urine Negative (Negative); WBC Urine Automated 0-5 /hpf (0-5); pH Urine 5.5 (4.5-7.5)
[2024-04-19] MEDS: ACETAMINOPHEN 325 MG TAB PO PRN (22:22)
[2024-04-20] MEDS: METOPROLOL TARTRATE 1 MG/ML VIAL IV STA ×2 (01:32→10:50)
[2024-04-20] MEDS: SODIUM CHLORIDE 0.9% 1,000 ML IV ONE ×2 (01:36→20:00)
[2024-04-20 01:40] LABS: Magnesium 1.9 mg/dl (1.7-2.4)
[2024-04-20 01:56] LABS: Thyroid Stimulating Hormone 0.926 uIu/ml (0.300-4.500)
[2024-04-20] MEDS: MAGNESIUM SULFATE / D5W 1 GM/100 ML BAG IV ONE ×2 (02:43→20:12)
[2024-04-20 06:51] LABS: Basophils # (auto) 0.03 K/uL (0.00-0.20); Basophils % (auto) 0.2 %; Eosinophils # (auto) 0.01 K/uL (0.00-0.50); Eosinophils % (auto) 0.1 %; Hematocrit (blood only) 38.3 % (42.0-52.0); Hemoglobin 12.8 g/dl (14.0-18.0); Immature Granulocytes # (auto) 0.08 K/uL (0.01-0.20); Immature Granulocytes % (auto) 0.5 %; Lymphocytes # (auto) 0.64 K/uL (1.20-3.40); Lymphocytes % (auto) 4.2 %; Mean Corpuscular Hemoglobin 30.5 pg (25.0-34.0); Mean Corpuscular Hgb Conc 33.4 g/dL (32.0-36.0); Mean Corpuscular Volume 91.2 fL (80.0-100.0); Mean Platelet Volume 8.7 fL (9.4-12.4); Monocytes # (auto) 1.84 K/uL (0.11-0.59); Monocytes % (auto) 12.1 %; Neutrophils # (auto) 12.65 K/uL (1.40-6.50); Neutrophils % (auto) 82.9 %; Platelet Count 362 K/uL (130-400); RDW Standard Deviation 39.9 fL (36.4-46.3); White Blood Count 15.25 K/ul (4.8-10.8)
[2024-04-20 07:17] LABS: Albumin Globulin Ratio 1.2 (0.9-2); Albumin Level 3.2 gm/dl (3.4-5.0); BUN Creatinine Ratio 23.3 (10-20); Bilirubin,Total 0.9 mg/dl (0.2-1.0); Calcium 8.8 mg/dl (8.6-10.3); Creatinine Clr Calc Pharmacy 135.2 ml/min; Globulin 2.6 gm/dl (2.5-4.0); Potassium 4.1 mmol/L (3.5-5.1); Total Protein 5.8 gm/dl (6.0-8.3)
--- NOTE | 2024-04-20 07:42 | Orthopedic Consultation ---
Date of Service April 20, 2024 Assessment & Plan (1) Acute pain of right knee: His worst pain certainly seems to be coming from his right knee. There is a very large effusion. His sed rate and CRP are also significantly elevated. We will aspirate his knee today and send it for cell count, cultures, crystals, and Lyme's. If it does come back with infectious process will likely do an arthroscopic I&D tomorrow. I did give him a diet for today. We will continue to follow him closely. History of Present Illness Reason for Consultation: Right knee pain. Requesting Physician: . Attending Physician: Francisco Stephens DO Arden is a pleasant 69-year-old male who I did a left hip and a left knee replacement on in the past. He has been doing fairly well until recently. He had a lot of swelling of his right hand and was seen in our office. He was given a Medrol Dosepak and cortisone injection. That helped a little bit with those symptoms. He then began developing some left hip pain this past week. It was pain mostly in his groin. He was then having some mild pain in his left knee as well. His left hip and his left knee were getting a little bit better and then he noticed a large effusion and severe pain in his right knee. He came to the emergency room. Radiographs demonstrated arthritis and effusion. His white count was elevated. His sed rate and CRP were significantly elevated. He was admitted to the medical service. Orthopedics was consulted to evaluate and treat.. Allergies Allergy/AdvReac Type Severity Reaction Status Date / Time No Known Allergies Allergy Verified 02/01/24 07:52 Home Medications Medication Instructions Recorded Confirmed Type atorvastatin 20 mg tablet 20 mg PO QAM 11/29/20 04/19/24 History lisinopril 10 1 tab PO QAM 11/29/20 04/19/24 History mg-hydrochlorothiazide 12.5 mg tablet psyllium husk 3.4 gram/5.4 gram 1 tbsp PO QAM PRN Constipation 11/29/20 04/19/24 History oral powder (Metamucil) amoxicillin 500 mg tablet 2,000 mg (4 x 500 mg) PO ONCE PRN 11/06/21 04/19/24 Rx prophylaxis #4 tabs oxycodone 5 mg tablet 5 mg PO Q6H PRN pain #30 tabs 02/01/24 04/19/24 Rx polyethylene glycol 3350 17 gram 17 g PO DAILY 02/01/24 04/19/24 History oral powder packet (Miralax) Past Med/Surg History Problem List Ambulatory dysfunction (Acute) Bilateral shoulder pain (Acute) Acute pain of right knee (Acute) Acute pain of left hip (Acute) Weakness (Acute) Rotator cuff tear arthropathy of left shoulder Synovitis of right wrist Status post right hip replacement (~01/2024) Osteoarthritis of right hip Status post carpal tunnel release Status post left hip replacement Status post left knee replacement Encounter for pre-operative examination HLD (hyperlipidemia) HTN (hypertension) Medical History Osteoarthritis Type 2 diabetes mellitus Noted per PCP/[facility] records HGBA1C 11/11/23 6.8% Obesity HLD (hyperlipidemia) HTN (hypertension) Surgical History Status post left knee replacement (07/2021) Status post left hip replacement Left MAMI, SAB at [facility] (10/27/22) History of carpal tunnel release of both wrists right 2019, left 2023 History of arthroscopy (2021) R/L knees History of repair of rotator cuff R/L History of colonoscopy Family History Father Diabetes Other No family history of adverse response to anesthesia Social History Smoking Status: Never smoker Tobacco Type: Smokeless Tobacco (Dip or Chew) Second Hand Exposure: No; Do You Dip or Chew Tobacco: Yes; Tobacco Cessation Education Requested by Patient: No Hx Alcohol Use: No Hx Substance Use: No Preferred Language: Ethiopian Communication Ability: Effective 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 Physical Exam On physical exam of the right knee, he has a large effusion. He has severe pain with any range of motion. He has no gross instability. Examination of his left leg shows good range of motion of his knee with no effusion no instability. He has good range of motion of his hip and he has no pain with range of motion of his hip at bedside. There was no redness or any signs of infection of his hip. Constitutional WD/WN, vitals as above Eyes PERRL, conjunctivae normal, anicteric sclerae ENMT external ear and nose normal, oropharynx normal Neck trachea midline, no thyromegaly Respiratory normal respiratory effort Cardiovascular RRR, no murmur, no edema Gastrointestinal (Abdomen) normal bowel sounds, soft, nontender, no hepatosplenomegaly Psychiatric A+Ox3, euthymic affect Results & Data Results & Data Laboratory Results . Diagnostic Findings X-rays of the left hip show the prosthesis to be in anatomic alignment without any evidence of fracture, his cage, or loosening. X-rays of the right knee show advanced osteoarthritis with joint space narrowing osteophyte formation. There are some signs of an effusion as well.. PG Care Time/CCT Total # of Minutes Spent Total Time Spent with Patient: Total time spent is greater than 50% in coordination of care (as documented) at patient's floor/unit and/or counseling patient: Coding Level of Care Code 32358 IN/OBS CONSULT LVL 4,60M Diagnoses Acute pain of right knee M25.561
[2024-04-20] MEDS: POLYETHYLENE (MIRALAX) 17 GM PACK PO SCH (08:01)
[2024-04-20 08:03] LABS: Estimated Average Glucose 134 mg/dl; Hemoglobin A1C 6.3 % (4.5-5.6)
[2024-04-20 13:16] LABS: Appearance Synovial Fluid Turbid; Color Synovial Fluid Yellow; Mononuclear WBC Synovial 9.9 %; Polynuclear WBC Synovial 90.1 %; RBC Synovial Fluid Auto 15000 /uL; Source Synovial Fluid Knee; WBC Synovial Fluid Auto 40419 /ul (0-200)
--- NOTE | 2024-04-20 16:26 | Hospitalist Progress Note ---
Date of Service April 20, 2024 Assessment & Plan (1) Osteoarthritis: (2) Type 2 diabetes mellitus: (3) HLD (hyperlipidemia): (4) HTN (hypertension): (5) Status post right hip replacement: (6) Status post left hip replacement: Plan Assessment and plan: Generalized joint pain R wrist/L hip/R knee paineffusion Suspected septic arthritis: S/p steroid injection of r wrist on 04/05, completed Medrol Dosepak 1 week ago Follow[address] with Dr. Anderson outpatient, WBC elevated at 20 now improved to 15.3, Tmax 101 Started empirically on IV Dapto/cefepime, Appreciate Ortho consult, x-rays negative for acute fractures Blood cultures still pending Takes oxycodone at home for pain, morphine for severe pain ordered Hx HTN/HLD: Hold statin/lisinopril/HCTZ for now A total of 50 minutes was spent on chart review/facilitation of plan of care/reviewing diagnostic data/discussion with consultants Full code DVT prophylaxis: Lovenox Admission and Anticipated Discharge Date Admission Date: April 19, 2024 Subjective Pt seen at bedside. Complains of pain in the right knee, right hand and right clavicle area. Ortho aspirated the right knee today. Has cloudy. inflammatory looking fluid. No further fever or chills. Review of Systems Review of Systems: Constitutional- + fever on admission; no weight loss Eyes- no acute visual changes ENT- no sinus drainage; no pharyngitis Pulmonary- no cough, no wheezing, no shortness of breath Cardiac- no chest pain, no palpitations, no orthopnea, no dependent edema GI- no nausea, no vomiting, no diarrhea, no melena, no hematochezia - no dysuria, no hematuria Musculoskeletal- + arthralgias, no myalgias Derm- no rashes, no new skin lesions, no changing skin lesions Hematologic- no unusual bruising, no unusual bleeding Lymphatics- no adenopathy Endocrine- no polyuria or polydipsia; no heat or cold intolerance Neuro- no headaches, no focal neurologic symptoms Psych- no anxiety, no depression Physical Exam Physical Exam: General- adult male seen at bedside. Appears ill and uncomfortable Head- atraumatic Eyes- PERRL, EOMI, anicteric ENT- oropharynx clear Neck- supple, no JVD, no adenopathy, no thyromegaly; carotids +2/2, no bruits appreciated Lungs- clear to auscultation and percussion Heart- regular rhythm; no murmur, no gallop, no rub appreciated Abdomen- normal bowel sounds, soft, nontender, no masses or hepatosplenomegaly Extremities- + knee swelling on right. No calor or erythema. Neuro- alert, oriented x 3; PERRL, EOMI; no facial palsy; no dysarthria; motor 5/5 bilaterally; Skin- warm & dry Results & Data Results & Data Vital Signs (Past 12 Hours) Vital Signs Temp Pulse Pulse Resp BP BP Pulse Ox 04/20/24 16:05 107 H 04/20/24 11:05 85 115/75 04/20/24 11:00 36.5 C 87 20 124/69 97 04/20/24 10:50 150 H 110/70 04/20/24 09:44 83 04/20/24 07:40 36.7 C 77 18 114/68 96 O2 Del Method 04/20/24 16:05 04/20/24 11:05 04/20/24 11:00 Room Air 04/20/24 10:50 04/20/24 09:44 04/20/24 07:40 Room Air Diagnostic Findings Laboratory Results WBC 15.25 K/ul (4.8-10.8) H 04/20/24 06:13 RBC 4.20 M/uL (4.70-6.10) L 04/20/24 06:13 Hgb 12.8 g/dl (14.0-18.0) L D 04/20/24 06:13 Hct 38.3 % (42.0-52.0) L 04/20/24 06:13 MCV 91.2 fL (80.0-100.0) 04/20/24 06:13 MCH 30.5 pg (25.0-34.0) 04/20/24 06:13 MCHC 33.4 g/dL (32.0-36.0) 04/20/24 06:13 RDW Std Deviation 39.9 fL (36.4-46.3) 04/20/24 06:13 RDW Coeff of Delores 12.0 % (11.5-14.5) 04/20/24 06:13 Plt Count 362 K/uL (130-400) 04/20/24 06:13 MPV 8.7 fL (9.4-12.4) L 04/20/24 06:13 Immature Gran % (Auto) 0.5 % 04/20/24 06:13 Neut % (Auto) 82.9 % 04/20/24 06:13 Lymph % (Auto) 4.2 % 04/20/24 06:13 [place] % (Auto) 12.1 % 04/20/24 06:13 Eos % (Auto) 0.1 % 04/20/24 06:13 Baso % (Auto) 0.2 % 04/20/24 06:13 Neut # (Auto) 12.65 K/uL (1.40-6.50) H 04/20/24 06:13 Lymph # (Auto) 0.64 K/uL (1.20-3.40) L 04/20/24 06:13 [place] # (Auto) 1.84 K/uL (0.11-0.59) H 04/20/24 06:13 Eos # (Auto) 0.01 K/uL (0.00-0.50) 04/20/24 06:13 Baso # (Auto) 0.03 K/uL (0.00-0.20) 04/20/24 06:13 Immature Gran # (Auto) 0.08 K/uL (0.01-0.20) 04/20/24 06:13 ESR 113 mm/hr (0-20) H 04/19/24 14:38 Sodium 135 mmol/L (136-145) L 04/20/24 06:13 Potassium 4.1 mmol/L (3.5-5.1) 04/20/24 06:13 Chloride 106 mmol/L (98-107) 04/20/24 06:13 Carbon Dioxide 22 mmol/L (21-32) 04/20/24 06:13 Anion Gap 7 (3-11) 04/20/24 06:13 BUN 14 mg/dl (6-23) 04/20/24 06:13 Creatinine 0.60 mg/dl (0.6-1.4) 04/20/24 06:13 Est Cr Clr Drug Dosing 135.2 ml/min 04/20/24 06:13 eGFR 105.15 04/20/24 06:13 BUN/Creatinine Ratio 23.3 (10-20) H 04/20/24 06:13 Glucose 132 mg/dl (70-99(Fasting)) H 04/20/24 06:13 Estimat Average Glucose 134 mg/dl 04/20/24 06:13 Hemoglobin A1c 6.3 % (4.5-5.6) H 04/20/24 06:13 Lactate 1.6 mmol/L (0.4-2.0) 04/19/24 14:38 Calcium 8.8 mg/dl (8.6-10.3) 04/20/24 06:13 Magnesium 1.9 mg/dl (1.7-2.4) 04/19/24 14:38 Total Bilirubin 0.9 mg/dl (0.2-1.0) 04/20/24 06:13 AST 11 U/L (13-39) L 04/20/24 06:13 ALT 15 U/L (7-52) 04/20/24 06:13 Alkaline Phosphatase 54 U/L (34-104) 04/20/24 06:13 Total Creatine Kinase 13 U/L (30-223) L 04/19/24 14:38 Troponin I High Sens 5.6 pg/ml (0-20) 04/19/24 14:38 C-Reactive Protein 24.83 mg/dl (0-0.5) H 04/19/24 14:38 Total Protein 5.8 gm/dl (6.0-8.3) L D 04/20/24 06:13 Albumin 3.2 gm/dl (3.4-5.0) L 04/20/24 06:13 Globulin 2.6 gm/dl (2.5-4.0) 04/20/24 06:13 Albumin/Globulin Ratio 1.2 (0.9-2) 04/20/24 06:13 Procalcitonin 0.23 ng/ml (0-0.5) 04/19/24 14:38 TSH 0.926 uIu/ml (0.300-4.500) 04/19/24 14:38 Urine Color Dark Yellow 04/19/24 18:37 Urine Appearance Clear (Clear) 04/19/24 18:37 Urine pH 5.5 (4.5-7.5) 04/19/24 18:37 Ur Specific [place] 1.026 (1.000-1.030) 04/19/24 18:37 Urine Protein Trace (Negative) H 04/19/24 18:37 Urine Glucose (UA) Negative (Negative) 04/19/24 18:37 Urine Ketones 1+ (Negative) H 04/19/24 18:37 Urine Blood Negative (Negative) 04/19/24 18:37 Urine Nitrite Negative (Negative) 04/19/24 18:37 Urine Bilirubin Negative (Negative) 04/19/24 18:37 Urine Urobilinogen Negative (Negative) 04/19/24 18:37 Ur Leukocyte Esterase Negative (Negative) 04/19/24 18:37 Urine WBC (Auto) 0-5 /hpf (0-5) 04/19/24 18:37 Urine RBC (Auto) 0-2 /hpf (0-2) 04/19/24 18:37 U Hyaline Cast (Auto) 6-10 /lpf (0-2) H 04/19/24 18:37 U Epithel Cells (Auto) 0-2 /hpf (0-2) 04/19/24 18:37 Urine Bacteria (Auto) None Seen (None Seen) 04/19/24 18:37 Urine Mucus Present (None Prsent) A 04/19/24 18:37 Fluid Comment 04/20/24 11:00 Synovial Source Knee 04/20/24 11:00 Synovial Color Yellow 04/20/24 11:00 Synovial Appearance Turbid 04/20/24 11:00 Synovial WBC (Auto) 67100 /ul (0-200) H 04/20/24 11:00 Synovial RBC (Auto) 55684 /uL 04/20/24 11:00 Synovial Polynuclear % 90.1 % 04/20/24 11:00 Synovial Mononuclear % 9.9 % 04/20/24 11:00 Synovial Crystals 04/20/24 11:00 Lyme Disease Screen Negative (Negative) 04/19/24 14:38 SARS-CoV-2 (PCR) NEGATIVE (Negative) 04/19/24 13:06 Influenza Type A (PCR) Negative (Neg) 04/19/24 13:06 Influenza Type B (PCR) Negative (Neg) 04/19/24 13:06 RSV (RT-PCR) Negative (Neg) 04/19/24 13:06 Impressions Chest X-Ray 04/19/24 14:14 XR chest 1V not portable HISTORY: 69 years-old Male calvicle pain acute pain of the right upper chest COMPARISON: Chest radiograph 01/04/2024 TECHNIQUE: AP view of the chest FINDINGS: Cardiomediastinal and hilar silhouettes are unchanged. The lungs appear clear. No pneumothorax or pleural effusion. The clavicles appear intact. Ill-defined linear lucency projects over the anteromedial aspect of the right first rib. IMPRESSION: 1. No acute cardiopulmonary abnormality. 2. No acute clavicular fracture identified. 3. Ill-defined linear lucency projects over the anteromedial aspect of the right first rib which is likely projectional. Findings should be correlated with point tenderness to exclude an acute nondisplaced fracture. ACT 112: Negative or not required by law. The above report was generated using voice recognition software. It may contain grammatical, syntax or spelling errors. Electronically signed by: Josue Aceves M.D. 04/19/2024 3:21 PM Hip/Pelvis X-Ray 04/19/24 14:14 XR hip LT 2V w pelvis HISTORY: 69 years-old Male pain acute pelvic and left hip pain COMPARISON: 02/01/2024 TECHNIQUE: AP view of the pelvis with 2 views of the left hip FINDINGS: Bilateral hip arthroplasties demonstrate aspect alignment. No acute fracture or evidence of hardware loosening. Rkvl-gz-[id number] degeneration of the SI joints. IMPRESSION: 1. No acute fracture or dislocation. 2. Unremarkable appearance of the hip arthroplasties. ACT 112: Negative or not required by law. The above report was generated using voice recognition software. It may contain grammatical, syntax or spelling errors. Electronically signed by: Josue Aceves M.D. 04/19/2024 3:25 PM Knee X-Ray 04/19/24 14:14 XR knee RT 3V HISTORY: 69 years-old Male pain acute right knee pain COMPARISON: None TECHNIQUE: 3 views of the right knee FINDINGS: Chondrocalcinosis. [id number]-dh-[id number] medial with moderate lateral and severe patellofemoral compartment osteoarthritis. Moderate-sized joint effusion. Arterial calcifications. No acute fracture, dislocation or osseous erosion. IMPRESSION: 1. No acute fracture or dislocation. 2. Chondrocalcinosis with tricompartmental osteoarthritis, severe within the patellofemoral joint. 3. Moderate sized joint effusion. ACT 112: Negative or not required by law. The above report was generated using voice recognition software. It may contain grammatical, syntax or spelling errors. Electronically signed by: Josue Aceves M.D. 04/19/2024 3:26 PM
[2024-04-21] MEDS: LORazepam 0.5 MG TAB PO PRN (00:51)
[2024-04-21 02:10] LABS: Basophils # (auto) 0.03 K/uL (0.00-0.20); Basophils % (auto) 0.2 %; Eosinophils # (auto) 0.01 K/uL (0.00-0.50); Eosinophils % (auto) 0.1 %; Hematocrit (blood only) 37.8 % (42.0-52.0); Immature Granulocytes # (auto) 0.05 K/uL (0.01-0.20); Immature Granulocytes % (auto) 0.3 %; Lymphocytes # (auto) 0.75 K/uL (1.20-3.40); Lymphocytes % (auto) 5.1 %; Mean Corpuscular Hemoglobin 31.3 pg (25.0-34.0); Mean Corpuscular Hgb Conc 34.4 g/dL (32.0-36.0); Mean Corpuscular Volume 91.1 fL (80.0-100.0); Mean Platelet Volume 8.6 fL (9.4-12.4); Monocytes # (auto) 1.74 K/uL (0.11-0.59); Monocytes % (auto) 11.9 %; Neutrophils # (auto) 12.03 K/uL (1.40-6.50); Neutrophils % (auto) 82.4 %; Platelet Count 350 K/uL (130-400); RDW Coefficient of Variation 11.9 % (11.5-14.5); RDW Standard Deviation 39.6 fL (36.4-46.3); Red Blood Count 4.15 M/uL (4.70-6.10); White Blood Count 14.61 K/ul (4.8-10.8)
[2024-04-21 02:22] LABS: BUN Creatinine Ratio 20.3 (10-20); Calcium 8.8 mg/dl (8.6-10.3); Creatinine Clr Calc Pharmacy 126.7 ml/min; Magnesium 1.9 mg/dl (1.7-2.4); Potassium 4.1 mmol/L (3.5-5.1)
[2024-04-21] MEDS: MAGNESIUM SULFATE / D5W 1 GM/100 ML BAG IV ONE (03:14)
[2024-04-21] MEDS: ALBUMIN 25% 25 GM/100 ML VIAL IV ONE (04:53)
[2024-04-21] MEDS: METOPROLOL TARTRATE 1 MG/ML VIAL IV STA ×4 (05:34→15:57)
[2024-04-21] MEDS: LORazepam 2 MG/1 ML VIAL IV STA (05:47)
[2024-04-21] MEDS ORDERED: MoRPHine SULFATE 2 MG/ML CARP IV PRN (06:31)
[2024-04-21] MEDS: KETOROLAC TROMETHAMINE 15 MG/ML VIAL IV ONE (06:40)
--- NOTE | 2024-04-21 08:56 | Electrocardiogram Report ---
Test Reason : Blood Pressure : */* mmHG Vent. Rate : 148 BPM Atrial Rate : 148 BPM P-R Int : 96 ms QRS Dur : 116 ms QT Int : 324 ms P-R-T Axes : * -41 53 degrees QTcB Int : 508 ms Possible Atrial flutter Left axis deviation Abnormal ECG When compared with ECG of 19-Apr-2024 14:17, Possible Atrial flutter now present HR has increased by 37 bpm Confirmed by Cosme Desai ([id number]) on 04/21/2024 8:55:54 AM Referred By: REFERRED SELF Confirmed By: Cosme Desai
--- NOTE | 2024-04-21 09:06 | Electrocardiogram Report ---
Test Reason : Blood Pressure : */* mmHG Vent. Rate : 131 BPM Atrial Rate : 131 BPM P-R Int : 184 ms QRS Dur : 114 ms QT Int : 314 ms P-R-T Axes : * -26 38 degrees QTcB Int : 463 ms Sinus tachycardia Otherwise normal ECG When compared with ECG of 20-Apr-2024 18:53, Premature supraventricular complexes are no longer Present Confirmed by Cosme Desai ([id number]) on 04/21/2024 9:05:42 AM Referred By: REFERRED SELF Confirmed By: Cosme Desai
--- NOTE | 2024-04-21 09:07 | Electrocardiogram Report ---
Test Reason : Blood Pressure : */* mmHG Vent. Rate : 95 BPM Atrial Rate : 95 BPM P-R Int : 136 ms QRS Dur : 122 ms QT Int : 354 ms P-R-T Axes : 52 -21 30 degrees QTcB Int : 444 ms Sinus rhythm with Premature supraventricular complexes Non-specific intra-ventricular conduction delay Borderline ECG When compared with ECG of 20-Apr-2024 00:19, (unconfirmed) Premature supraventricular complexes are now Present Vent. rate has decreased by 53 bpm Possible Atrial flutter no longer present Confirmed by Cosme Desai ([id number]) on 04/21/2024 9:07:18 AM Referred By: REFERRED SELF Confirmed By: Cosme Desai
--- NOTE | 2024-04-21 13:15 | Orthopedic Progress Note ---
Date of Service April 21, 2024 Assessment & Plan (1) Pseudogout of right knee: Fortunately I do not see any signs of infection of his joints. He is already doing much better. He still having some soreness in the right knee mostly due to the pseudogout and the arthritis. I ordered a cortisone injection up to his room and will hopefully give him a right intra-articular knee cortisone injection tomorrow. He can continue to be weight-bear as tolerated. Ryan Nava was seen and examined at bedside this morning. Overall he is feeling much better. He says he has been walking to the bathroom. He still having some soreness in his right knee but it is much better after he had the knee aspirated. He does not have much pain in his left hip or his left knee at this time. No new complaints.. Review of Systems All systems reviewed & are unremarkable except as noted in HPI & below. Physical Exam On physical exam of the right knee, there is a trace effusion. He has good range of motion. No signs of infection.. Results & Data Results & Data Laboratory Results . Diagnostic Findings Knee aspirate showed a white blood cell count of 40,000. This is consistent with a hyper inflammatory process such as pseudogout.. PG Care Time/CCT Total # of Minutes Spent Total Time Spent with Patient: Total time spent is greater than 50% in coordination of care (as documented) at patient's floor/unit and/or counseling patient: Coding Level of Care Code 79761 Post Operative Follow-Up Diagnoses Pseudogout of right knee M11.261
--- NOTE | 2024-04-21 15:49 | Hospitalist Progress Note ---
Date of Service April 21, 2024 Assessment & Plan (1) Osteoarthritis: (2) Type 2 diabetes mellitus: (3) HLD (hyperlipidemia): (4) HTN (hypertension): (5) Status post right hip replacement: (6) Status post left hip replacement: Plan Assessment and plan: Generalized joint pain R wrist/L hip/R knee paineffusion Suspected septic arthritis: S/p steroid injection of r wrist on 04/05, completed Medrol Dosepak 1 week ago Follows with Dr. Anderson outpatient, WBC elevated at 20 now improved to 15.3--->14.0, Afebrile > 24 hrs Started empirically on IV Dapto/cefepime, Appreciate Ortho consult, x-rays negative for acute fractures. Ortho feels he does not have a septic joint and has pseudogout. Plan is for steroid injection tomorrow in the right knee Blood cultures still negative -Lyme testing and anaplasmosis testing pending Takes oxycodone at home for pain, morphine for severe pain ordered Hx HTN/HLD: Hold statin/lisinopril/HCTZ for now Tachycardia Could be from being dry. Urine looked concentrated this am. Will give NSS fluid bolus Metoprolol prn Check echo TSH normal Hyperglycemia Will follow. Could be elevated from the steroid injections and medrol Check Hgb A1C A total of 56 minutes was spent on chart review/facilitation of plan of care/reviewing diagnostic data/discussion with consultants Full code DVT prophylaxis: Lovenox Admission and Anticipated Discharge Date Admission Date: April 19, 2024 Subjective 04/21/24: Pt seen at bedside. Pain in the right knee, right hand and right clavicle area improved. Ortho aspirated the right knee and it helped with the discomfort. Cultures neg so far. Lyme and anaplasmosis testing pending. Still with sinus tachy. TSH is ok low normal. No fever or chills. No CP. Ortho doubts a septic joint. Plan on steroid intra-articular knee injection tomorrow. No further fever or chills. Recalls a possible insect bit on back of right leg last week. No rash. No know tick bites. Review of Systems Review of Systems: As per HPI. All other ROS neg Physical Exam Physical Exam: General- adult male seen at chairside. Still appears ill and uncomfortable Head- atraumatic Eyes- PERRL, EOMI, anicteric ENT- oropharynx clear Neck- supple, no JVD, no adenopathy, no thyromegaly; carotids +2/2, no bruits appreciated Lungs- clear to auscultation and percussion Heart- regular rhythm; no murmur, no gallop, no rub appreciated Abdomen- normal bowel sounds, soft, nontender, no masses or hepatosplenomegaly Extremities- + knee swelling on right. No calor or erythema. Neuro- alert, oriented x 3; PERRL, EOMI; no facial palsy; no dysarthria; motor 5/5 bilaterally; Skin- warm & dry, no rashes Results & Data Results & Data Vital Signs (Past 12 Hours) Vital Signs Temp Pulse Pulse Resp BP BP Pulse Ox 04/21/24 14:47 36.5 C 143 H 20 123/71 94 04/21/24 11:00 36.6 C 113 H 20 109/66 95 04/21/24 07:51 36.5 C 125 H 18 124/69 96 04/21/24 07:04 130 H 120/74 04/21/24 07:00 146 H 04/21/24 06:40 137 H 117/83 04/21/24 06:09 137 H 117/83 04/21/24 05:47 140 H 118/76 04/21/24 05:32 140 H 118/76 O2 Del Method 04/21/24 14:47 Room Air 04/21/24 11:00 Room Air 04/21/24 07:51 Room Air 04/21/24 07:04 04/21/24 07:00 04/21/24 06:40 04/21/24 06:09 04/21/24 05:47 04/21/24 05:32 Diagnostic Findings Laboratory Results WBC 14.61 K/ul (4.8-10.8) H 04/21/24 01:50 RBC 4.15 M/uL (4.70-6.10) L 04/21/24 01:50 Hgb 13.0 g/dl (14.0-18.0) L 04/21/24 01:50 Hct 37.8 % (42.0-52.0) L 04/21/24 01:50 MCV 91.1 fL (80.0-100.0) 04/21/24 01:50 MCH 31.3 pg (25.0-34.0) 04/21/24 01:50 MCHC 34.4 g/dL (32.0-36.0) 04/21/24 01:50 RDW Std Deviation 39.6 fL (36.4-46.3) 04/21/24 01:50 RDW Coeff of Delores 11.9 % (11.5-14.5) 04/21/24 01:50 Plt Count 350 K/uL (130-400) 04/21/24 01:50 MPV 8.6 fL (9.4-12.4) L 04/21/24 01:50 Immature Gran % (Auto) 0.3 % 04/21/24 01:50 Neut % (Auto) 82.4 % 04/21/24 01:50 Lymph % (Auto) 5.1 % 04/21/24 01:50 [place] % (Auto) 11.9 % 04/21/24 01:50 Eos % (Auto) 0.1 % 04/21/24 01:50 Baso % (Auto) 0.2 % 04/21/24 01:50 Neut # (Auto) 12.03 K/uL (1.40-6.50) H 04/21/24 01:50 Lymph # (Auto) 0.75 K/uL (1.20-3.40) L 04/21/24 01:50 [place] # (Auto) 1.74 K/uL (0.11-0.59) H 04/21/24 01:50 Eos # (Auto) 0.01 K/uL (0.00-0.50) 04/21/24 01:50 Baso # (Auto) 0.03 K/uL (0.00-0.20) 04/21/24 01:50 Immature Gran # (Auto) 0.05 K/uL (0.01-0.20) 04/21/24 01:50 ESR 113 mm/hr (0-20) H 04/19/24 14:38 Sodium 134 mmol/L (136-145) L 04/21/24 01:50 Potassium 4.1 mmol/L (3.5-5.1) 04/21/24 01:50 Chloride 105 mmol/L (98-107) 04/21/24 01:50 Carbon Dioxide 21 mmol/L (21-32) 04/21/24 01:50 Anion Gap 8 (3-11) 04/21/24 01:50 BUN 13 mg/dl (6-23) 04/21/24 01:50 Creatinine 0.64 mg/dl (0.6-1.4) 04/21/24 01:50 Est Cr Clr Drug Dosing 126.7 ml/min 04/21/24 01:50 eGFR 103.12 04/21/24 01:50 BUN/Creatinine Ratio 20.3 (10-20) H 04/21/24 01:50 Glucose 145 mg/dl (70-99(Fasting)) H 04/21/24 01:50 Estimat Average Glucose 134 mg/dl 04/20/24 06:13 Hemoglobin A1c 6.3 % (4.5-5.6) H 04/20/24 06:13 Lactate 1.6 mmol/L (0.4-2.0) 04/19/24 14:38 Calcium 8.8 mg/dl (8.6-10.3) 04/21/24 01:50 Magnesium 1.9 mg/dl (1.7-2.4) 04/21/24 01:50 Total Bilirubin 0.9 mg/dl (0.2-1.0) 04/20/24 06:13 AST 11 U/L (13-39) L 04/20/24 06:13 ALT 15 U/L (7-52) 04/20/24 06:13 Alkaline Phosphatase 54 U/L (34-104) 04/20/24 06:13 Total Creatine Kinase 13 U/L (30-223) L 04/19/24 14:38 Troponin I High Sens 5.6 pg/ml (0-20) 04/19/24 14:38 C-Reactive Protein 24.83 mg/dl (0-0.5) H 04/19/24 14:38 Total Protein 5.8 gm/dl (6.0-8.3) L D 04/20/24 06:13 Albumin 3.2 gm/dl (3.4-5.0) L 04/20/24 06:13 Globulin 2.6 gm/dl (2.5-4.0) 04/20/24 06:13 Albumin/Globulin Ratio 1.2 (0.9-2) 04/20/24 06:13 Procalcitonin 0.23 ng/ml (0-0.5) 04/19/24 14:38 TSH 0.926 uIu/ml (0.300-4.500) 04/19/24 14:38 Urine Color Dark Yellow 04/19/24 18:37 Urine Appearance Clear (Clear) 04/19/24 18:37 Urine pH 5.5 (4.5-7.5) 04/19/24 18:37 Ur Specific [place] 1.026 (1.000-1.030) 04/19/24 18:37 Urine Protein Trace (Negative) H 04/19/24 18:37 Urine Glucose (UA) Negative (Negative) 04/19/24 18:37 Urine Ketones 1+ (Negative) H 04/19/24 18:37 Urine Blood Negative (Negative) 04/19/24 18:37 Urine Nitrite Negative (Negative) 04/19/24 18:37 Urine Bilirubin Negative (Negative) 04/19/24 18:37 Urine Urobilinogen Negative (Negative) 04/19/24 18:37 Ur Leukocyte Esterase Negative (Negative) 04/19/24 18:37 Urine WBC (Auto) 0-5 /hpf (0-5) 04/19/24 18:37 Urine RBC (Auto) 0-2 /hpf (0-2) 04/19/24 18:37 U Hyaline Cast (Auto) 6-10 /lpf (0-2) H 04/19/24 18:37 U Epithel Cells (Auto) 0-2 /hpf (0-2) 04/19/24 18:37 Urine Bacteria (Auto) None Seen (None Seen) 04/19/24 18:37 Urine Mucus Present (None Prsent) A 04/19/24 18:37 Fluid Comment 04/20/24 11:00 Synovial Source Knee 04/20/24 11:00 Synovial Color Yellow 04/20/24 11:00 Synovial Appearance Turbid 04/20/24 11:00 Synovial WBC (Auto) 61597 /ul (0-200) H 04/20/24 11:00 Synovial RBC (Auto) 70674 /uL 04/20/24 11:00 Synovial Polynuclear % 90.1 % 04/20/24 11:00 Synovial Mononuclear % 9.9 % 04/20/24 11:00 Synovial Crystals 04/20/24 11:00 Anaplasma Smear See Comment 04/21/24 09:27 Lyme Disease Screen Negative (Negative) 04/19/24 14:38 SARS-CoV-2 (PCR) NEGATIVE (Negative) 04/19/24 13:06 Influenza Type A (PCR) Negative (Neg) 04/19/24 13:06 Influenza Type B (PCR) Negative (Neg) 04/19/24 13:06 RSV (RT-PCR) Negative (Neg) 04/19/24 13:06 Impressions Chest X-Ray 04/19/24 14:14 XR chest 1V not portable HISTORY: 69 years-old Male clavicle pain acute pain of the right upper chest COMPARISON: Chest radiograph 01/04/2024 TECHNIQUE: AP view of the chest FINDINGS: Cardiomediastinal and hilar silhouettes are unchanged. The lungs appear clear. No pneumothorax or pleural effusion. The clavicles appear intact. Ill-defined linear lucency projects over the anteromedial aspect of the right first rib. IMPRESSION: 1. No acute cardiopulmonary abnormality. 2. No acute clavicular fracture identified. 3. Ill-defined linear lucency projects over the anteromedial aspect of the right first rib which is likely projectional. Findings should be correlated with point tenderness to exclude an acute nondisplaced fracture. ACT 112: Negative or not required by law. The above report was generated using voice recognition software. It may contain grammatical, syntax or spelling errors. Electronically signed by: Josue Aceves M.D. 04/19/2024 3:21 PM Hip/Pelvis X-Ray 04/19/24 14:14 XR hip LT 2V w pelvis HISTORY: 69 years-old Male pain acute pelvic and left hip pain COMPARISON: 02/01/2024 TECHNIQUE: AP view of the pelvis with 2 views of the left hip FINDINGS: Bilateral hip arthroplasties demonstrate aspect alignment. No acute fracture or evidence of hardware loosening. Pquy-rr-hxsgnyez degeneration of the SI joints. IMPRESSION: 1. No acute fracture or dislocation. 2. Unremarkable appearance of the hip arthroplasties. ACT 112: Negative or not required by law. The above report was generated using voice recognition software. It may contain grammatical, syntax or spelling errors. Electronically signed by: Josue Aceves M.D. 04/19/2024 3:25 PM Knee X-Ray 04/19/24 14:14 XR knee RT 3V HISTORY: 69 years-old Male pain acute right knee pain COMPARISON: None TECHNIQUE: 3 views of the right knee FINDINGS: Chondrocalcinosis. Ytot-gd-zilldzak medial with moderate lateral and severe patellofemoral compartment osteoarthritis. Moderate-sized joint effusion. Arterial calcifications. No acute fracture, dislocation or osseous erosion. IMPRESSION: 1. No acute fracture or dislocation. 2. Chondrocalcinosis with tricompartmental osteoarthritis, severe within the patellofemoral joint. 3. Moderate sized joint effusion. ACT 112: Negative or not required by law. The above report was generated using voice recognition software. It may contain grammatical, syntax or spelling errors. Electronically signed by: Josue Aceves M.D. 04/19/2024 3:26 PM Medications Administered Current Inpatient Medications Acetaminophen (Acetaminophen 325 Mg Tab) 650 mg PO Q4H PRN PRN Reason: pain/fever Stop: 05/19/24 17:03 Last Admin: 04/21/24 09:58 Dose: 650 mg Enoxaparin Sodium (Enoxaparin Inj 40 Mg/0.4 Ml Syr) 40 mg SQ Q24H SEAN Stop: 05/19/24 17:59 Last Admin: 04/20/24 17:03 Dose: 40 mg Daptomycin 350 mg/ Syringe 7 mls @ 2.5 mls/min IV Q24H SEAN; Protocol Stop: 04/21/24 17:59 Last Admin: 04/20/24 17:03 Dose: 2.5 mls/min Cefepime HCl (Maxipime 2000mg) 2,000 mg in 20 mls @ 5 mls/min IV Q8H SEAN; Protocol Stop: 04/21/24 17:29 Last Admin: 04/21/24 09:59 Dose: 5 mls/min Lorazepam (Lorazepam 1 Mg Tab) 1 mg PO Q6H PRN PRN Reason: Anxiety Stop: 05/20/24 19:44 Metoprolol Tartrate (Metoprolol Tartrate 1 Mg/Ml Vial) 5 mg IV Q6 PRN PRN Reason: Tachycardia HR > 125 Stop: 05/21/24 15:39 Morphine Sulfate (Morphine Sulfate 2 Mg/Ml Carp) 4 mg IV Q3H PRN PRN Reason: Pain Stop: 05/03/24 15:57 Oxycodone HCl (Oxycodone Hcl Ir 5 Mg Tab (Immediate Release)) 5 - 10 mg PO QID PRN PRN Reason: Pain Stop: 05/05/24 06:30 Polyethylene Glycol (Polyethylene (Miralax) 17 Gm Pack) 17 gm PO DAILY SEAN Stop: 05/20/24 08:59 Last Admin: 04/21/24 09:59 Dose: 17 gm
[2024-04-21] MEDS: SODIUM CHLORIDE 0.9% 250 ML IV ONE (15:57)
--- NOTE | 2024-04-21 16:16 | Electrocardiogram Report ---
Test Reason : Blood Pressure : */* mmHG Vent. Rate : 111 BPM Atrial Rate : 111 BPM P-R Int : 132 ms QRS Dur : 120 ms QT Int : 334 ms P-R-T Axes : 31 -36 42 degrees QTcB Int : 454 ms Sinus tachycardia Left axis deviation Right bundle branch block Abnormal ECG When compared with ECG of 04-Jan-2024 09:01, No significant change was found Confirmed by Cosme Desai ([id number]) on 04/21/2024 4:16:13 PM Referred By: Confirmed By: Cosme Desai
[2024-04-21] MEDS: LIDOCAINE 5% 1 PATCH TD STA (17:41)
[2024-04-21] MEDS: LORazepam 1 MG TAB PO PRN (21:18)
[2024-04-21] MEDS: METOPROLOL TARTRATE 1 MG/ML VIAL IV PRN (21:28)
[2024-04-22] MEDS: oxyCODONE HCL IR 5 MG TAB (IMMEDIATE RELEASE) PO PRN (00:39)
[2024-04-22 06:21] LABS: Hematocrit (blood only) 41.9 % (42.0-52.0); Hemoglobin 14.4 g/dl (14.0-18.0); Mean Corpuscular Hemoglobin 30.9 pg (25.0-34.0); Mean Corpuscular Hgb Conc 34.4 g/dL (32.0-36.0); Mean Corpuscular Volume 89.9 fL (80.0-100.0); Mean Platelet Volume 8.7 fL (9.4-12.4); Platelet Count 398 K/uL (130-400); RDW Coefficient of Variation 11.9 % (11.5-14.5); RDW Standard Deviation 39.1 fL (36.4-46.3); Red Blood Count 4.66 M/uL (4.70-6.10); White Blood Count 15.17 K/ul (4.8-10.8)
[2024-04-22 06:34] LABS: BUN Creatinine Ratio 24.6 (10-20); Calcium 9.6 mg/dl (8.6-10.3); Potassium 4.5 mmol/L (3.5-5.1)
[2024-04-22] MEDS: TRIAMCINOLONE ACET 40 MG/ML VIAL IA ONE (08:01)
[2024-04-22] MEDS: BUPIVACAINE 0.25% PF 30 ML VIAL INFIL ONE (08:01)
--- NOTE | 2024-04-22 16:41 | Hospitalist Progress Note ---
Date of Service April 22, 2024 Assessment & Plan (1) Osteoarthritis: (2) Type 2 diabetes mellitus: (3) HLD (hyperlipidemia): (4) HTN (hypertension): (5) Status post right hip replacement: (6) Status post left hip replacement: Plan Assessment and plan: Generalized joint pain R wrist/L hip/R knee paineffusion Admit for Suspected septic arthritis: - Consult ID S/p steroid injection of r wrist on 04/05, completed Medrol Dosepak 1 week ago [address] with Dr. Anderson outpatient, WBC elevated at 20 now improved to 15.3--->14.0---> 15.1, Afebrile > 48 hrs Started empirically on IV Dapto/cefepime, Appreciate Ortho consult, x-rays negative for acute fractures. Ortho feels he does not have a septic joint and has pseudogout. Plan is for steroid injection today in the right knee Blood cultures still negative -Lyme testing negative. Peripheral smear unrevealing for anaplasmosis findings. Anaplasmosis testing pending Takes oxycodone at home for pain, morphine for severe pain ordered Hx HTN/HLD: Hold statin/lisinopril/HCTZ for now Tachycardia Resolved post fluid bolus. Metoprolol prn Reviewed echo, normal LV function TSH normal Hyperglycemia Will follow. Could be elevated from the steroid injections and medrol Hgb A1C 6.3 A total of 50 minutes was spent on chart review/facilitation of plan of care/reviewing diagnostic data/discussion with consultants Full code DVT prophylaxis: Lovenox Admission and Anticipated Discharge Date Admission Date: April 19, 2024 Subjective 04/22/24: Pt seen at bedside. Pain in the right knee, right hand and right clavicle area improved. Ortho aspirated the right knee and it helped with the discomfort. Cultures neg so far. Lyme testing and anaplasmosis smear unrevealing. Anaplasmosis testing pending. No further sinus tach post fluid bolus. TSH is ok low normal. No fever or chills. No CP. Ortho doubts a septic joint. Plan on steroid intra-articular knee injection today. No further fever or chills. Recalls a possible insect bit on back of right leg last week. No rash. No known tick bites. Review of Systems Review of Systems: As per HPI. All other ROS neg Physical Exam Physical Exam: General- adult male seen at chairside. Feels and looks better today. His is present. Head- atraumatic Eyes- PERRL, EOMI, anicteric ENT- oropharynx clear Neck- supple, no JVD, no adenopathy, no thyromegaly; carotids +2/2, no bruits appreciated Lungs- clear to auscultation and percussion Heart- regular rhythm; no murmur, no gallop, no rub appreciated Abdomen- normal bowel sounds, soft, nontender, no masses or hepatosplenomegaly Extremities- + knee swelling on right. No calor or erythema. Neuro- alert, oriented x 3; PERRL, EOMI; no facial palsy; no dysarthria; motor 5/5 bilaterally; Skin- warm & dry, no rashes Results & Data Results & Data Vital Signs (Past 12 Hours) Vital Signs Temp Pulse Pulse Resp BP Pulse Ox O2 Del Method 04/22/24 15:28 37.0 C 96 H 17 132/87 95 Room Air 04/22/24 15:04 108 H 04/22/24 10:25 37.1 C 96 H 19 134/84 95 Room Air 04/22/24 07:10 36.8 C 86 17 111/74 94 Room Air Diagnostic Findings Laboratory Results WBC 15.17 K/ul (4.8-10.8) H 04/22/24 05:48 RBC 4.66 M/uL (4.70-6.10) L 04/22/24 05:48 Hgb 14.4 g/dl (14.0-18.0) 04/22/24 05:48 Hct 41.9 % (42.0-52.0) L 04/22/24 05:48 MCV 89.9 fL (80.0-100.0) 04/22/24 05:48 MCH 30.9 pg (25.0-34.0) 04/22/24 05:48 MCHC 34.4 g/dL (32.0-36.0) 04/22/24 05:48 RDW Std Deviation 39.1 fL (36.4-46.3) 04/22/24 05:48 RDW Coeff of Delores 11.9 % (11.5-14.5) 04/22/24 05:48 Plt Count 398 K/uL (130-400) 04/22/24 05:48 MPV 8.7 fL (9.4-12.4) L 04/22/24 05:48 Immature Gran % (Auto) 0.3 % 04/21/24 01:50 Neut % (Auto) 82.4 % 04/21/24 01:50 Lymph % (Auto) 5.1 % 04/21/24 01:50 [place] % (Auto) 11.9 % 04/21/24 01:50 Eos % (Auto) 0.1 % 04/21/24 01:50 Baso % (Auto) 0.2 % 04/21/24 01:50 Neut # (Auto) 12.03 K/uL (1.40-6.50) H 04/21/24 01:50 Lymph # (Auto) 0.75 K/uL (1.20-3.40) L 04/21/24 01:50 [place] # (Auto) 1.74 K/uL (0.11-0.59) H 04/21/24 01:50 Eos # (Auto) 0.01 K/uL (0.00-0.50) 04/21/24 01:50 Baso # (Auto) 0.03 K/uL (0.00-0.20) 04/21/24 01:50 Immature Gran # (Auto) 0.05 K/uL (0.01-0.20) 04/21/24 01:50 ESR 113 mm/hr (0-20) H 04/19/24 14:38 Sodium 134 mmol/L (136-145) L 04/22/24 05:48 Potassium 4.5 mmol/L (3.5-5.1) 04/22/24 05:48 Chloride 105 mmol/L (98-107) 04/22/24 05:48 Carbon Dioxide 20 mmol/L (21-32) L 04/22/24 05:48 Anion Gap 9 (3-11) 04/22/24 05:48 BUN 16 mg/dl (6-23) 04/22/24 05:48 Creatinine 0.65 mg/dl (0.6-1.4) 04/22/24 05:48 Est Cr Clr Drug Dosing 124.0 ml/min 04/22/24 05:48 eGFR 102.64 04/22/24 05:48 BUN/Creatinine Ratio 24.6 (10-20) H 04/22/24 05:48 Glucose 148 mg/dl (70-99(Fasting)) H 04/22/24 05:48 Estimat Average Glucose 134 mg/dl 04/20/24 06:13 Hemoglobin A1c 6.3 % (4.5-5.6) H 04/20/24 06:13 Lactate 1.6 mmol/L (0.4-2.0) 04/19/24 14:38 Calcium 9.6 mg/dl (8.6-10.3) 04/22/24 05:48 Magnesium 2.0 mg/dl (1.7-2.4) 04/22/24 05:48 Total Bilirubin 0.9 mg/dl (0.2-1.0) 04/20/24 06:13 AST 11 U/L (13-39) L 04/20/24 06:13 ALT 15 U/L (7-52) 04/20/24 06:13 Alkaline Phosphatase 54 U/L (34-104) 04/20/24 06:13 Total Creatine Kinase 13 U/L (30-223) L 04/19/24 14:38 Troponin I High Sens 5.6 pg/ml (0-20) 04/19/24 14:38 C-Reactive Protein 24.83 mg/dl (0-0.5) H 04/19/24 14:38 Total Protein 5.8 gm/dl (6.0-8.3) L D 04/20/24 06:13 Albumin 3.2 gm/dl (3.4-5.0) L 04/20/24 06:13 Globulin 2.6 gm/dl (2.5-4.0) 04/20/24 06:13 Albumin/Globulin Ratio 1.2 (0.9-2) 04/20/24 06:13 Procalcitonin 0.23 ng/ml (0-0.5) 04/19/24 14:38 TSH 0.926 uIu/ml (0.300-4.500) 04/19/24 14:38 Urine Color Dark Yellow 04/19/24 18:37 Urine Appearance Clear (Clear) 04/19/24 18:37 Urine pH 5.5 (4.5-7.5) 04/19/24 18:37 Ur Specific [place] 1.026 (1.000-1.030) 04/19/24 18:37 Urine Protein Trace (Negative) H 04/19/24 18:37 Urine Glucose (UA) Negative (Negative) 04/19/24 18:37 Urine Ketones 1+ (Negative) H 04/19/24 18:37 Urine Blood Negative (Negative) 04/19/24 18:37 Urine Nitrite Negative (Negative) 04/19/24 18:37 Urine Bilirubin Negative (Negative) 04/19/24 18:37 Urine Urobilinogen Negative (Negative) 04/19/24 18:37 Ur Leukocyte Esterase Negative (Negative) 04/19/24 18:37 Urine WBC (Auto) 0-5 /hpf (0-5) 04/19/24 18:37 Urine RBC (Auto) 0-2 /hpf (0-2) 04/19/24 18:37 U Hyaline Cast (Auto) 6-10 /lpf (0-2) H 04/19/24 18:37 U Epithel Cells (Auto) 0-2 /hpf (0-2) 04/19/24 18:37 Urine Bacteria (Auto) None Seen (None Seen) 04/19/24 18:37 Urine Mucus Present (None Prsent) A 04/19/24 18:37 Fluid Comment 04/20/24 11:00 Synovial Source Knee 04/20/24 11:00 Synovial Color Yellow 04/20/24 11:00 Synovial Appearance Turbid 04/20/24 11:00 Synovial WBC (Auto) 37772 /ul (0-200) H 04/20/24 11:00 Synovial RBC (Auto) 38843 /uL 04/20/24 11:00 Synovial Polynuclear % 90.1 % 04/20/24 11:00 Synovial Mononuclear % 9.9 % 04/20/24 11:00 Synovial Crystals 04/20/24 11:00 Anaplasma Smear See Comment 04/21/24 09:27 Lyme Disease Screen Negative (Negative) 04/19/24 14:38 SARS-CoV-2 (PCR) NEGATIVE (Negative) 04/19/24 13:06 Influenza Type A (PCR) Negative (Neg) 04/19/24 13:06 Influenza Type B (PCR) Negative (Neg) 04/19/24 13:06 RSV (RT-PCR) Negative (Neg) 04/19/24 13:06 Impressions Chest X-Ray 04/19/24 14:14 XR chest 1V not portable HISTORY: 69 years-old Male calvicle pain acute pain of the right upper chest COMPARISON: Chest radiograph 01/04/2024 TECHNIQUE: AP view of the chest FINDINGS: Cardiomediastinal and hilar silhouettes are unchanged. The lungs appear clear. No pneumothorax or pleural effusion. The clavicles appear intact. Ill-defined linear lucency projects over the anteromedial aspect of the right first rib. IMPRESSION: 1. No acute cardiopulmonary abnormality. 2. No acute clavicular fracture identified. 3. Ill-defined linear lucency projects over the anteromedial aspect of the right first rib which is likely projectional. Findings should be correlated with point tenderness to exclude an acute nondisplaced fracture. ACT 112: Negative or not required by law. The above report was generated using voice recognition software. It may contain grammatical, syntax or spelling errors. Electronically signed by: Josue Aceves M.D. 04/19/2024 3:21 PM Hip/Pelvis X-Ray 04/19/24 14:14 XR hip LT 2V w pelvis HISTORY: 69 years-old Male pain acute pelvic and left hip pain COMPARISON: 02/01/2024 TECHNIQUE: AP view of the pelvis with 2 views of the left hip FINDINGS: Bilateral hip arthroplasties demonstrate aspect alignment. No acute fracture or evidence of hardware loosening. [id number] degeneration of the SI joints. IMPRESSION: 1. No acute fracture or dislocation. 2. Unremarkable appearance of the hip arthroplasties. ACT 112: Negative or not required by law. The above report was generated using voice recognition software. It may contain grammatical, syntax or spelling errors. Electronically signed by: Josue Aceves M.D. 04/19/2024 3:25 PM Knee X-Ray 04/19/24 14:14 XR knee RT 3V HISTORY: 69 years-old Male pain acute right knee pain COMPARISON: None TECHNIQUE: 3 views of the right knee FINDINGS: Chondrocalcinosis. [id number] medial with moderate lateral and severe patellofemoral compartment osteoarthritis. Moderate-sized joint effusion. Arterial calcifications. No acute fracture, dislocation or osseous erosion. IMPRESSION: 1. No acute fracture or dislocation. 2. Chondrocalcinosis with tricompartmental osteoarthritis, severe within the patellofemoral joint. 3. Moderate sized joint effusion. ACT 112: Negative or not required by law. The above report was generated using voice recognition software. It may contain grammatical, syntax or spelling errors. Electronically signed by: Josue Aceves M.D. 04/19/2024 3:26 PM Medications Administered Current Inpatient Medications Acetaminophen (Acetaminophen 325 Mg Tab) 650 mg PO Q4H PRN PRN Reason: pain/fever Stop: 05/19/24 17:03 Last Admin: 04/22/24 11:46 Dose: 650 mg Enoxaparin Sodium (Enoxaparin Inj 40 Mg/0.4 Ml Syr) 40 mg SQ Q24H SEAN Stop: 05/19/24 17:59 Last Admin: 04/21/24 18:01 Dose: 40 mg Lorazepam (Lorazepam 1 Mg Tab) 1 mg PO Q6H PRN PRN Reason: Anxiety Stop: 05/20/24 19:44 Last Admin: 04/21/24 21:18 Dose: 1 mg Metoprolol Tartrate (Metoprolol Tartrate 1 Mg/Ml Vial) 5 mg IV Q6 PRN PRN Reason: Tachycardia HR > 125 Stop: 05/21/24 15:39 Last Admin: 04/21/24 21:28 Dose: 5 mg Morphine Sulfate (Morphine Sulfate 2 Mg/Ml Carp) 4 mg IV Q3H PRN PRN Reason: Pain Stop: 05/03/24 15:57 Oxycodone HCl (Oxycodone Hcl Ir 5 Mg Tab (Immediate Release)) 5 - 10 mg PO QID PRN PRN Reason: Pain Stop: 05/05/24 06:30 Last Admin: 04/22/24 00:39 Dose: 10 mg Polyethylene Glycol (Polyethylene (Miralax) 17 Gm Pack) 17 gm PO DAILY SEAN Stop: 05/20/24 08:59 Last Admin: 04/22/24 07:59 Dose: Not Given
--- NOTE | 2024-04-22 16:44 | Orthopedic Progress Note ---
Date of Service April 22, 2024 Assessment & Plan (1) Pseudogout of right knee: I think he was mostly dealing with a pseudogout of his right knee. The aspiration helped a lot. I offered him a cortisone injection today in his right knee but he declined. He says it is feeling much better. He is orthopedically stable for discharge when medically ready. He can follow-up with orthopedics as needed. Orthopedics will sign off. Please contact me again if you have any further questions or concerns. Ryan Nava was seen and examined at bedside this afternoon. He seems to be doing better. He is having some mild pain in his right knee but has been up and ambulating. He seems to have some left upper pectoral pain but other than that he is doing much better. His left hip is no longer bothering him. He has no new complaints.. Review of Systems All systems reviewed & are unremarkable except as noted in HPI & below. Physical Exam On physical examination of the right knee, there is no effusion. He has good range of motion. Mild pain over the distal femoral condyles.. Results & Data Results & Data Laboratory Results . Diagnostic Findings . PG Care Time/CCT Total # of Minutes Spent Total Time Spent with Patient: Total time spent is greater than 50% in coordination of care (as documented) at patient's floor/unit and/or counseling patient: Coding Level of Care Code 59635 Post Operative Follow-Up Diagnoses Pseudogout of right knee M11.261
[2024-04-22 22:47] LABS: Lyme DNA PCR CSF or Synovial Not Detected (Not Detected); Lyme DNA Source SYNOVIAL FLUID
[2024-04-23] MEDS: LIDOCAINE 5% 1 PATCH TD SCH (00:42)
[2024-04-23 06:50] LABS: Hematocrit (blood only) 38.6 % (42.0-52.0); Hemoglobin 13.2 g/dl (14.0-18.0); Mean Corpuscular Hemoglobin 30.8 pg (25.0-34.0); Mean Corpuscular Hgb Conc 34.2 g/dL (32.0-36.0); Mean Platelet Volume 8.7 fL (9.4-12.4); Platelet Count 357 K/uL (130-400); RDW Coefficient of Variation 11.9 % (11.5-14.5); RDW Standard Deviation 38.8 fL (36.4-46.3); Red Blood Count 4.29 M/uL (4.70-6.10); White Blood Count 12.31 K/ul (4.8-10.8)
[2024-04-23 07:17] LABS: BUN Creatinine Ratio 25.9 (10-20); Calcium 9.4 mg/dl (8.6-10.3); Creatinine Clr Calc Pharmacy 148.3 ml/min; Potassium 4.3 mmol/L (3.5-5.1)
--- NOTE | 2024-04-23 14:20 | Hospitalist Progress Note ---
Date of Service April 23, 2024 Assessment & Plan (1) Osteoarthritis: (2) Type 2 diabetes mellitus: (3) HLD (hyperlipidemia): (4) HTN (hypertension): (5) Status post right hip replacement: (6) Status post left hip replacement: Plan Generalized joint pain R wrist/L hip/R knee paineffusion Concern for Suspected septic arthritis Pseudogout flares S/p steroid injection of r wrist on 04/05, completed Medrol Dosepak 1 week ago [facility] Follows with Dr. Anderson outpatient, WBC elevated at 20K at presentation--->>>> improved to 15.3--->14.0---> 15.1-->12.31, Afebrile > 48 hrs Started empirically on IV Dapto/cefepime at presentation, now has been discontinued (last dose cefepime 04/21 and last does of dapto on 04/20). - Xrays neg for acute fractures. - Ortho evaled, feels he does not have a septic joint and has pseudogout. s/p Rt knee arthrocentesis 04/20. Pt had declined Rt knee cortisone injection until infection is ruled out per him. - 04/20 Rt knee synovial fluid: WBC 11696, has crystal consistent w/ pseudogout. - Lyme screen and DNA negative, Anaplasma smear negative, Anaplasma DNA pending. Bl Cx and Rt knee Cx so far neg. - ID consult pending. - Patient agreeable for trying colchicine, see subjective. Colchicine started 04/23, follow clinically for response and adverse effect. - Continue with pain management Hx HTN/HLD: c/w home meds. Mild global hypokinesis of LV w/ reduce EF/ Tachycardia: did resolve w/ iv fluid at presentation, but seen on and off historically. TSH nl. ECHO 04/22/24 w/ EF of 40-45%, mild global hypokinesis noted. Last ECHO was in 01/28/2016 w/ nl EF of 55-59% & LV wall motion was normal. pt appears euvolemic. will start low dose metoprolol radha, follow response. Will consult cardio as OP chart review w/ no cardiac eval noted. Hyperglycemia: Will follow. Could be elevated from the steroid injections and medrol. Hgb A1C 6.3 A total of 60 minutes was spent on chart review/facilitation of plan of care/reviewing diagnostic data/discussion with consultants Full code DVT prophylaxis: Lovenox PT/OT, likely dc in next 1-2 days, cardio eval pending as well. Admission and Anticipated Discharge Date Admission Date: April 19, 2024 Subjective Patient was seen and examined at bedside. Patient was lying in bed, on room air, NAD, patient's at bedside was also updated on plan of care. Patient reports overall his joint pains getting little better but is kiln tender at bilateral sternoclavicular joint. His left hip pain has improved, right knee pain has improved after aspiration. Patient reports eating okay and has his usual bowel movements of every 2 to 3 days. Role of colchicine was discussed with the patient for control of acute flare of pseudogout including adverse effect of nausea/vomiting/diarrhea. Both patient and his agreeable to try colchicine and see how he does clinically. They do not feel he is ready to leave the hospital yet. They are aware that antibiotic has already been stopped yesterday but they would like infectious disease evaluation before discharge. Patient was concerned of possible infection and hence he declined steroid injection to the knee earlier, but patient states that he would like to see next 1 to 2 days and if pain continues to bother and if there is no infection he would like to go ahead with a steroid injection for his right knee. Patient denies any allergic reaction to colchicine, patient's renal and hepatic functions are normal. Physical Exam Physical Exam: General- adult male seen at chairside. Feels and looks better today. His is present. Head- atraumatic Eyes- PERRL, EOMI, anicteric ENT- oropharynx clear Neck- supple, no JVD, no adenopathy, no thyromegaly; carotids +2/2, no bruits appreciated Lungs- clear to auscultation and percussion Heart- regular rhythm; no murmur, no gallop, no rub appreciated Abdomen- normal bowel sounds, soft, nontender, no masses or hepatosplenomegaly Extremities- + knee swelling on right. No calor or erythema. Lt hip tenderness improved. b/l sternoclavicular tenderness improved, still present, no swelling/erythema noted. Neuro- alert, oriented x 3; PERRL, EOMI; no facial palsy; no dysarthria; motor 5/5 bilaterally; Skin- warm & dry, no rashes Results & Data Results & Data Vital Signs (Past 12 Hours) Vital Signs Temp Pulse Pulse Resp BP BP Pulse Ox 04/23/24 11:43 127 H 125/82 04/23/24 11:28 147 H 124/78 04/23/24 10:36 36.4 C L 94 H 18 124/78 94 04/23/24 09:34 90 04/23/24 07:59 36.4 C L 82 19 135/86 93 04/23/24 02:53 36.7 C 92 H 20 134/83 98 O2 Del Method 04/23/24 11:43 04/23/24 11:28 04/23/24 10:36 Room Air 04/23/24 09:34 04/23/24 07:59 Room Air 04/23/24 02:53 Room Air
[2024-04-23] MEDS: COLCHICINE 0.6 MG TAB PO SCH ×2 (15:51→17:59)
[2024-04-23] MEDS: METOPROLOL TARTRATE 25 MG TAB PO SCH (15:51)
[2024-04-24 06:27] LABS: Hematocrit (blood only) 39.6 % (42.0-52.0); Hemoglobin 13.5 g/dl (14.0-18.0); Mean Corpuscular Hemoglobin 30.7 pg (25.0-34.0); Mean Corpuscular Hgb Conc 34.1 g/dL (32.0-36.0); Mean Platelet Volume 8.8 fL (9.4-12.4); Platelet Count 357 K/uL (130-400); RDW Coefficient of Variation 11.7 % (11.5-14.5); RDW Standard Deviation 38.4 fL (36.4-46.3)
[2024-04-24 06:59] LABS: BUN Creatinine Ratio 31.1 (10-20); Calcium 9.6 mg/dl (8.6-10.3); Creatinine Clr Calc Pharmacy 131.6 ml/min; Magnesium 1.8 mg/dl (1.7-2.4); Phosphorus 3.4 mg/dl (2.5-4.9)
[2024-04-24] MEDS: ATORVASTATIN 20 MG TAB PO SCH (09:23)
[2024-04-24] MEDS: LISINOPRIL/HCTZ 10/12.5MG TAB PO SCH (09:23)
--- NOTE | 2024-04-24 09:46 | Cardiology Consultation ---
Date of Consultation April 24, 2024 Assessment & Plan (1) Ambulatory dysfunction: (2) Diffuse pain: (3) Abnormal echocardiogram: (4) Sinus tachycardia: (5) Paroxysmal atrial flutter: (6) HLD (hyperlipidemia): (7) HTN (hypertension): Plan 69-year-old male admitted with diffuse pain, workup revealing pseudogout, underlying significant osteoarthritis status post multiple surgical interventions. Resting echocardiography obtained this admission (04/22) was technically difficult, revealing mild reduction in LV systolic function, EF 40 to 45%. No significant valvular pathology observed. Mild concentric LVH noted. Patient with history of hypertension, dyslipidemia, type 2 diabetes mellitus, family history, and personal history of carotid artery disease. Personal review of patient's inpatient pvc monitor reveals the predominant rhythm to be sinus/sinus tachycardia. EKGs on April 20, 2024 April 21, 2024 with suspected paroxysmal atrial flutter. [id number] Score 5 points High-sensitivity troponin 5.6 pg/mL on April 19, 2024 Recommendations: Initiate guideline directed medical therapy metoprolol succinate starting out at 25 mg/day. Initiate anticoagulation, Eliquis 5 mg twice per day unless cost prohibitive; risks and benefits discussed Wash out lisinopril (currently prescribed lisinopril/HCTZ 03/19.5) x 36 hours then transition to Entresto. Intensify statin therapy after colchicine course. LDL goal < 55 mg/dL Outpatient Lexiscan nuclear stress test went over acute issues. Supervising Physician Co-Signing Physician Notes I spent a total of 50 minutes on the date of service in preparation, delivery, and documentation of the care provided to this patient, excluding any time spent in the performance of separately billed services. I have personally performed a history and physical examination on the patient. I have reviewed the advance practitioner's documentation, and I agree with, and take responsibility for the plan of care. Will also need zio monitor as an outpatient. History of Present Illness Reason for Consultation: "Tachy, has reduced EF and global hypokinesis." Requesting Physician: Dr. Althea Montalvo MD Attending Physician: Dr. Althea Montalvo MD History of Present Illness Patient presented to the ER April 19, 2024 via ambulance. "I could not walk. I had really bad pain in my left hip then my right knee swelled. Then my left shoulder was sore across the clavicle into my neck. Two weeks ago my right hand started swelling. I think it was a spider bite." White blood cell count was 20K on presentation, empirically treated with IV Dapto and cefepime. Workup consistent with pseudogout. Cardiology consultation requested April 24, 2024 due to elevated heart rates and abnormal resting echocardiography. Resting echocardiography was technically difficult, revealing mild reduction in LV systolic function, EF 40 to 45%. Personal review of patient's EKGs and continuous pvc monitor revealed sinus/sinus tachycardia, probable paroxysmal atrial flutter. Patient denies prior cardiac history. He specifically denies history of CAD, AL, CHF, arrhythmia, heart murmur, rheumatic fever, or scarlet fever. Patient denies chest pain, palpitations, unusual shortness of breath, cough, orthopnea, PND, edema, or syncope. Past Medical and Surgical History: Hypertension Dyslipidemia Type 2 diabetes mellitus Osteoarthritis Obesity Bilateral hip replacements Left knee replacement Family History: Positive for CAD in mother and father. Father still alive at 91. Mother last year with a CVA. 1 brother with melanoma. 1 sister is at [facility] following CVA. Social History: Never smoker. Chews smokeless tobacco. Prior alcohol consumption was 2-3 beers per night, abstaining since right hip replacement. 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 Most of his family is in [place] Allergies Allergy/AdvReac Type Severity Reaction Status Date / Time No Known Allergies Allergy Verified 02/01/24 07:52 Home Medications Medication Instructions Recorded Confirmed Type atorvastatin 20 mg tablet 20 mg PO QAM 11/29/20 04/19/24 History lisinopril 10 1 tab PO QAM 11/29/20 04/19/24 History mg-hydrochlorothiazide 12.5 mg tablet psyllium husk 3.4 gram/5.4 gram 1 tbsp PO QAM PRN Constipation 11/29/20 04/19/24 History oral powder (Metamucil) amoxicillin 500 mg tablet 2,000 mg (4 x 500 mg) PO ONCE PRN 11/06/21 04/19/24 Rx prophylaxis #4 tabs oxycodone 5 mg tablet 5 mg PO Q6H PRN pain #30 tabs 02/01/24 04/19/24 Rx polyethylene glycol 3350 17 gram 17 g PO DAILY 02/01/24 04/19/24 History oral powder packet (Miralax) apixaban 5 mg tablet (Eliquis) 5 mg PO BID #60 tabs 04/24/24 Rx Patient History Medical History Osteoarthritis Type 2 diabetes mellitus Noted per PCP/[facility] records HGBA1C 11/11/23 6.8% Obesity HLD (hyperlipidemia) HTN (hypertension) Surgical History Status post left knee replacement (07/2021) Status post left hip replacement Left MAMI, SAB at [facility] (10/27/22) History of carpal tunnel release of both wrists right 2019, left 2023 History of arthroscopy (2021) R/L knees History of repair of rotator cuff R/L History of colonoscopy Family History Father Diabetes Other No family history of adverse response to anesthesia Social History Smoking Status: Never smoker Tobacco Type: Smokeless Tobacco (Dip or Chew) Second Hand Exposure: No; Do You Dip or Chew Tobacco: Yes; Tobacco Cessation Education Requested by Patient: No Hx Alcohol Use: No Hx Substance Use: No Preferred Language: German Communication Ability: Effective Quill Winder Required: No Beliefs That Will Affect Care: None Current Living Situation: Spouse current occupational status: retired Other Information That Helps Us Care for You: No Feels Safe at Home: Yes Safety Concerns: Feels Safe At This Time Assistive Devices: Cane and Walker Review of Systems Review of Systems: Complete Review of Systems is as stated above, negative, or noncontributory. Physical Exam Physical Exam: General: A&Ox3. NAD. HENT: Normocephalic. Atraumatic. Eyes: PER. Conjunctiva pink, sclera clear. Neck: Bilateral carotid bruits. No JVD. Heart: Regular at 84 bpm. No murmur. No rub. Lungs: Clear to auscultation. Abdomen: +BS. Soft. Nontender. No masses or organomegaly. Extremities: No clubbing, cyanosis, or edema. Limited neurological examination is without focal deficits. Pulses: Posterior tibial=1/4. Results & Data Vital Signs (Past 12 Hours) Vital Signs Temp Pulse Pulse Resp BP BP Pulse Ox 04/24/24 07:19 36.5 C 73 18 119/80 94 04/24/24 03:02 36.6 C 84 18 111/75 95 04/23/24 22:53 36.6 C 88 18 121/76 96 04/23/24 21:48 82 O2 Del Method 04/24/24 07:19 Room Air 04/24/24 03:02 Room Air 04/23/24 22:53 Room Air 04/23/24 21:48 Laboratory Results CBC 04/24/24 Range/Units 05:44 WBC 11.10 H (4.8-10.8) K/ul RBC 4.40 L (4.70-6.10) M/uL Hgb 13.5 L (14.0-18.0) g/dl Hct 39.6 L (42.0-52.0) % Plt Count 357 (130-400) K/uL Comprehensive Metabolic Panel 04/24/24 Range/Units 05:44 Sodium 134 L (136-145) mmol/L Potassium 4.0 (3.5-5.1) mmol/L Chloride 101 (98-107) mmol/L Carbon Dioxide 24 (21-32) mmol/L BUN 19 (6-23) mg/dl Creatinine 0.61 (0.6-1.4) mg/dl Glucose 133 H (70-99(Fasting)) mg/dl Calcium 9.6 (8.6-10.3) mg/dl Intake and Output 04/23/24 04/24/24 04/24/24 22:59 06:59 14:59 Intake Total 100 / 700 100 / 700 Output Total 375 / 625 200 / 625 Balance -275 / 75 -100 / 75 Intake: Oral 100 / 700 100 / 700 Output: Urine 375 / 625 200 / 625 Other: Weight 101.6 kg Weight Measurement Method Built in [facility] Diagnostic Findings April 22, 2024 TTE ([facility]): Technically difficult. Normal size LV. Mild concentric LVH. Septal motion consistent with conduction abnormality. Mild global hypokinesis. EF 40 to 45%. Grade 1 diastolic dysfunction. No significant valvular disease. Telemetry: Sinus/sinus tachycardia, ? paroxysmal atrial flutter
[2024-04-24] MEDS: APIXABAN 5 MG TABLET PO SCH (12:58)
--- NOTE | 2024-04-24 14:47 | Hospitalist Progress Note ---
Date of Service April 24, 2024 Assessment & Plan (1) Osteoarthritis: (2) Type 2 diabetes mellitus: (3) HLD (hyperlipidemia): (4) HTN (hypertension): (5) Status post right hip replacement: (6) Status post left hip replacement: Plan Generalized joint pain R wrist/L hip/R knee paineffusion Concern for Suspected septic arthritis Pseudogout flares S/p steroid injection of r wrist on 04/05, completed Medrol Dosepak 1 week ago CLIENT STRATEGIST Follows with Dr. Anderson outpatient, WBC elevated at 20K at presentation--->>>> improved to 15.3--->14.0---> 15.1-->12.31, Afebrile > 48 hrs Started empirically on IV Dapto/cefepime at presentation, now has been discontinued (last dose cefepime 04/21 and last does of dapto on 04/20). - Xrays neg for acute fractures. - Ortho evaled, feels he does not have a septic joint and has pseudogout. s/p Rt knee arthrocentesis 04/20. Pt had declined Rt knee cortisone injection until infection is ruled out per him. - 04/20 Rt knee synovial fluid: WBC 66905, has crystal consistent w/ pseudogout. - Lyme screen and DNA negative, Anaplasma smear negative, Anaplasma DNA pending. Bl Cx and Rt knee Cx so far neg. - ID consult pending. - c/w colchicine 04/23, pt reports better improvement in joint pain. - Continue with pain management Hx HTN/HLD: c/w home meds. Mild global hypokinesis of LV w/ reduce EF/ Tachycardia and Paroxysmal a flutter: Patient with increased heart rate on and off historically. TSH is WNL. Echo from 01/28/2016 with normal EF of 55 to 59% and LV wall motion was normal. Echo from 04/22/2024 with EF of 40 to 45% with mild global hypokinesis. EKG from April 20, 2024 with suspected paroxysmal atrial flutter. [id number]- VASc score of 5 points. Cardiology evaluated, patient on metoprolol succinate 25 Mg daily, Eliquis started. Optimizing GDMT for the patient. Plan to intensify statin therapy after colchicine course. Outpatient Lexiscan nuclear stress test and Zio patch monitoring. Hyperglycemia: Will follow. Could be elevated from the steroid injections and medrol. Hgb A1C 6.3 A total of 58 minutes was spent on chart review/facilitation of plan of care/reviewing diagnostic data/discussion with consultants Full code DVT prophylaxis: pt on eliquis PT/OT, likely dc in next 1-2 days, await ID eval. Await PT/OT eval. Admission and Anticipated Discharge Date Admission Date: April 19, 2024 Subjective Patient was seen and examined at bedside. Patient was lying in bed, on room air, NAD. Patient reports overall his joint pains getting better, tenderness at bilateral sternoclavicular joint has improved on exam. His left hip tenderness resolved on exam, right knee pain has improved fairly well after aspiration. Patient reports eating okay and has his usual bowel movements of every 2 to 3 days. Pt denies any GI upset and diarrhea. Cardio evaled, recommending eliquis for aflutter, cost is 43 dollars a month, pt is agreeable for the cost. states she will provide first month coupon to the patient. Physical Exam Physical Exam: General- adult male seen at chairside. Feels and looks better today. Head- atraumatic Eyes- PERRL, EOMI, anicteric ENT- oropharynx clear Neck- supple, no JVD, no adenopathy, no thyromegaly; carotids +2/2, no bruits appreciated Lungs- clear to auscultation and percussion Heart- regular rhythm; no murmur, no gallop, no rub appreciated Abdomen- normal bowel sounds, soft, nontender, no masses or hepatosplenomegaly Extremities- + knee swelling on right. No calor or erythema. Lt hip tenderness improved. b/l sternoclavicular tenderness improved, no swelling/erythema noted. Neuro- alert, oriented x 3; PERRL, EOMI; no facial palsy; no dysarthria; motor 5/5 bilaterally; Skin- warm & dry, no rashes Results & Data Results & Data Vital Signs (Past 12 Hours) Vital Signs Temp Pulse Pulse Resp BP BP Pulse Ox 04/24/24 11:10 36.5 C 79 18 105/70 94 04/24/24 10:00 76 04/24/24 07:19 36.5 C 73 18 119/80 94 04/24/24 03:02 36.6 C 84 18 111/75 95 O2 Del Method 04/24/24 11:10 Room Air 04/24/24 10:00 04/24/24 07:19 Room Air 04/24/24 03:02 Room Air
[2024-04-24] MEDS: COLCHICINE 0.6 MG TAB PO SCH (20:31)
[2024-04-25 07:06] VITALS: RESP 18
[2024-04-25 07:22] LABS: BUN Creatinine Ratio 33.3 (10-20); Calcium 9.2 mg/dl (8.6-10.3); Creatinine Clr Calc Pharmacy 133.8 ml/min; Hematocrit (blood only) 38.9 % (42.0-52.0); Hemoglobin 12.9 g/dl (14.0-18.0); Magnesium 1.9 mg/dl (1.7-2.4); Mean Corpuscular Hgb Conc 33.2 g/dL (32.0-36.0); Mean Corpuscular Volume 90.5 fL (80.0-100.0); Mean Platelet Volume 8.9 fL (9.4-12.4); Phosphorus 3.4 mg/dl (2.5-4.9); Platelet Count 357 K/uL (130-400); Potassium 4.2 mmol/L (3.5-5.1); RDW Coefficient of Variation 11.9 % (11.5-14.5); RDW Standard Deviation 39.2 fL (36.4-46.3)
[2024-04-25] MEDS: METOPROLOL SUCC 25MG EXT REL TAB PO SCH (08:32)
--- NOTE | 2024-04-25 10:13 | Cardiology Progress Note ---
Date of Service April 25, 2024 Assessment & Plan (1) Ambulatory dysfunction: (2) Diffuse pain: (3) Abnormal echocardiogram: (4) Sinus tachycardia: (5) Paroxysmal atrial flutter: (6) HLD (hyperlipidemia): (7) HTN (hypertension): Plan 69-year-old male admitted with diffuse pain, workup revealing pseudogout, underlying significant osteoarthritis status post multiple surgical interventions. Echocardiography on 04/22 was technically difficult, revealing mild reduction in LV systolic function, EF 40 to 45%. No significant valvular pathology observed. Mild concentric LVH noted. Patient with history of hypertension, dyslipidemia, type 2 diabetes mellitus, family history, and personal history of carotid artery disease. Telemetry with sinus/sinus tachycardia, possible PAT, suspected asymptomatic paroxysmal atrial flutter with 2:1 conduciton. [id number] Score 5 points High-sensitivity troponin 5.6 pg/mL on April 19, 2024 Recommendations: * Increase metoprolol succinate to 50 mg/day. * Eliquis initiated this admission * [facility] referral, certified physical therapist assistant with washing out lisinopril-HCTZ x 36 hours and transitioing to [facility]. * Intensify statin therapy after colchicine course. LDL goal < 55 mg/dL * Outpatient Cardiology follow-up including Lexiscan nuclear stress testing and 14-day Zio Monitor * Please contact with any questions or concerns. Admission and Anticipated Discharge Date Admission Date: April 19, 2024 Supervising Physician Co-Signing Physician Notes Attending attestation: Case reviewed with the advanced practitioner. I have personally performed a history and physical examination on the patient. I have reviewed the advanced practitioner's documentation on the date of service referenced in note, and I agree with, and take responsibility for the plan of care. I spent a total of 20 minutes coordinating, documenting, and providing care for this patient excluding time spent in the performance of separately billed services or time spent by another provider. Jude Monroe, Subjective Patient seen and examined. Chart, medications, telemetry reviewed. Pain improved. Heart rates increased with minimal activity on telemetry, asymptomatic. Denies palpitations, chest pain, shortness of breath, orthopnea, PND, edema, dizziness, melena, or hematochezia. Telemetry: Sinus with atrial and ventricular ectopy in the 80s, short paroxysms of atrial tachycardia versus 2-1 atrial flutter Review of Systems Review of Systems: Complete Review of Systems is as stated above, negative, or noncontributory. Physical Exam Physical Exam: General: A&Ox3. NAD. HENT: Normocephalic. Atraumatic. Eyes: PER. Conjunctiva pink, sclera clear. Neck: Bilateral carotid bruits. No JVD. Heart: Regular at 80 bpm. No murmur. No rub. Lungs: Clear to auscultation. Abdomen: +BS. Soft. Nontender. No masses or organomegaly. Extremities: No clubbing, cyanosis, or edema. Limited neurological examination is without focal deficits. Pulses: Posterior tibial=1/4. Results & Data Vital Signs (Past 12 Hours) Vital Signs Temp Pulse Resp BP BP Pulse Ox O2 Del Method 04/25/24 07:06 36.7 C 80 18 110/73 94 Room Air 04/25/24 03:24 36.3 C L 77 20 118/67 94 Room Air 04/24/24 23:07 36.3 C L 82 18 109/68 94 Room Air Laboratory Results CBC 04/25/24 Range/Units 06:14 WBC 8.90 (4.8-10.8) K/ul RBC 4.30 L (4.70-6.10) M/uL Hgb 12.9 L (14.0-18.0) g/dl Hct 38.9 L (42.0-52.0) % Plt Count 357 (130-400) K/uL Comprehensive Metabolic Panel 04/25/24 Range/Units 06:14 Sodium 136 (136-145) mmol/L Potassium 4.2 (3.5-5.1) mmol/L Chloride 104 (98-107) mmol/L Carbon Dioxide 25 (21-32) mmol/L BUN 20 (6-23) mg/dl Creatinine 0.60 (0.6-1.4) mg/dl Glucose 127 H (70-99(Fasting)) mg/dl Calcium 9.2 (8.6-10.3) mg/dl Intake and Output 04/24/24 04/25/24 04/25/24 22:59 06:59 14:59 Output Total Balance - Output: # Bowel Movements Other: # Unmeasured Voids 2 Weight 101.6 kg Weight Measurement Method Built in [facility]
[2024-04-25 11:49] VITALS: PULSE 82; TEMP 97.7; O2SAT 96
[2024-04-25] MEDS: METOPROLOL SUCC 25MG EXT REL TAB PO ONE (12:24)
--- NOTE | 2024-04-25 14:08 | Infectious Disease Consult ---
Date of Service April 25, 2024 Telehealth Information I performed this visit using a real-time telehealth connection between my location and the patients location ([facility]). After connecting through interactive tele-video, patient was identified by name and date of and/or wristband check.Patient (or authorized healthcare consumer sales representative) was informed that this was a telemedicine visit and it was being conducted confidentially over secure lines. My office door was closed and no one else was present in the room with me.Patient (or authorized healthcare consumer sales representative) provided consent to proceed with the visit, expressed an understanding of privacy and security of the telemedicine visit, and gave permission to have a hospital consumer sales representative in the room in order to assist with the visit and to conduct portions of the visit, as needed. I informed the patient (or authorized healthcare consumer sales representative) that I reviewed their record and presented the opportunity for them to ask any questions regarding the visit today. The patient agreed to participate. Assessment & Plan Plan Patient who is being followed by orthopedics who presented with joint pains the worse being his right knee which has been aspirated by Orthopedics .He has been diagnosed with pseudogout and his antibiotics have been stopped History of Present Illness History of Present Illness 69 y/o M PMHx of HTN/HLD/osteoarthritis right hip, s/p left hip replacement, s/p left knee replacement who presented to the ED on 04/19/2024 with complaints of right wrist pain, left hip pain and right knee pain that has slowly began to worsen. He follows with orthopedics outpatient and reports he was started on Medrol Dosepak which he completed about a week ago with no improvement in symptoms. He was evaluated by orthopedics and was found to have right knee effusion which was aspirated WBC 86067 and wound cultures without any organism .He is currently not on any antibiotics Allergies Allergy/AdvReac Type Severity Reaction Status Date / Time No Known Allergies Allergy Verified 02/01/24 07:52 Home Medications Medication Instructions Recorded Confirmed Type atorvastatin 20 mg tablet 20 mg PO QAM 11/29/20 04/19/24 History lisinopril 10 1 tab PO QAM 11/29/20 04/19/24 History mg-hydrochlorothiazide 12.5 mg tablet psyllium husk 3.4 gram/5.4 gram 1 tbsp PO QAM PRN Constipation 11/29/20 04/19/24 History oral powder (Metamucil) amoxicillin 500 mg tablet 2,000 mg (4 x 500 mg) PO ONCE PRN 11/06/21 04/19/24 Rx prophylaxis #4 tabs oxycodone 5 mg tablet 5 mg PO Q6H PRN pain #30 tabs 02/01/24 04/19/24 Rx polyethylene glycol 3350 17 gram 17 g PO DAILY 02/01/24 04/19/24 History oral powder packet (Miralax) apixaban 5 mg tablet (Eliquis) 5 mg PO BID #60 tabs 04/24/24 Rx Patient History Medical History Osteoarthritis Type 2 diabetes mellitus Noted per PCP/[facility] records HGBA1C 11/11/23 6.8% Obesity HLD (hyperlipidemia) HTN (hypertension) Surgical History Status post left knee replacement (07/2021) Status post left hip replacement Left MAMI, SAB at [facility] (10/27/22) History of carpal tunnel release of both wrists right 2019, left 2023 History of arthroscopy (2021) R/L knees History of repair of rotator cuff R/L History of colonoscopy Family History Father Diabetes Other No family history of adverse response to anesthesia Social History Smoking Status: Never smoker Tobacco Type: Smokeless Tobacco (Dip or Chew) Second Hand Exposure: No; Do You Dip or Chew Tobacco: Yes; Tobacco Cessation Education Requested by Patient: No Hx Alcohol Use: No Hx Substance Use: No Preferred Language: Thai Communication Ability: Effective Pull Tab Dealer Required: No Beliefs That Will Affect Care: None Current Living Situation: Spouse current occupational status: retired Other Information That Helps Us Care for You: No Feels Safe at Home: Yes Safety Concerns: Feels Safe At This Time Assistive Devices: Cane and Walker Results & Data Vital Signs (Past 12 Hours) Vital Signs Temp Pulse Pulse Resp BP BP Pulse Ox 04/25/24 11:48 36.5 C 82 18 101/64 96 04/25/24 08:00 76 04/25/24 07:06 36.7 C 80 18 110/73 94 04/25/24 03:24 36.3 C L 77 20 118/67 94 O2 Del Method 04/25/24 11:48 Room Air 04/25/24 08:00 04/25/24 07:06 Room Air 04/25/24 03:24 Room Air Laboratory Results Gram Stain Final 04/20/24-1235 Gram Stain Result Many WBCs Seen No Organisms Seen Aero/Daria Cult Final 04/25/24-1202 No growth Diagnostic Findings FINDINGS: Chondrocalcinosis. [id number] medial with moderate lateral and severe patellofemoral compartment osteoarthritis. Moderate-sized joint effusion. Arterial calcifications. No acute fracture, dislocation or osseous erosion. IMPRESSION: 1. No acute fracture or dislocation. 2. Chondrocalcinosis with tricompartmental osteoarthritis, severe within the patellofemoral joint. 3. Moderate sized joint effusion.
--- NOTE | 2024-04-25 15:38 | Discharge Summary ---
Date of Service April 25, 2024 Admission HPI Per Admitting Provider The patient is a 61-year-old male with a past medical history of HTN/HLD/osteoarthritis right hip, s/p left hip replacement, s/p left knee replacement who presents to the ED on 04/19/2024 with complaints of right wrist pain, left hip pain and right knee pain that has slowly began to worsen. He follows with orthopedics outpatient and reports seeing him in the office and being started on Medrol Dosepak which she finished about a week ago with no improvement in symptoms. Reports his right thumb is numb and he is unable to bend his fingers completely. He also reports a fever at home. Tmax 101. Denies any nausea/vomiting/diarrhea. Denies any abdominal pain. Denies any recent travel/sore throat. Does report some neck stiffness. Reports if his pain did not improve, orthopedics was considering a right wrist MRI. On arrival to the ED, labs are remarkable for WBC 20, platelets 435, neutrophils 16, ESR 113, CRP 24, Lyme screening negative, COVID/flu/RSV negative. The patient will be admitted for further infectious workup Admission Exam Per Admitting Provider Constitutional: WD/WN, vitals as above Eyes: PERRL, conjunctivae normal, anicteric sclerae ENMT: external ear and nose normal, oropharynx normal Neck: trachea midline, no thyromegaly Respiratory: normal respiratory effort, lungs clear to auscultation Cardiovascular: RRR, no murmur, no edema Gastrointestinal (Abdomen): normal bowel sounds, soft, nontender, no hepatosplenomegaly Musculoskeletal: no cyanosis or clubbing, extremities motor strength 5/5 (Right wrist swelling, right knee swelling) Skin: no rashes, warm and dry Neurologic: PERRL, EOMI, accommodation nl, no face palsy, no dysarthria Lymphatic: no cervical or axillary lymphadenopathy Principal Diagnosis Generalized joint pain Right wrist/left hip/right knee pain Concern for suspected septic arthritis, ruled out Pseudogout Paroxysmal a flutter Abnormal echocardiogram Discharge Exam General- adult male seen at bedside. Feels and looks better today. Head- atraumatic Eyes- PERRL, EOMI, anicteric ENT- oropharynx clear Neck- supple, no JVD, no adenopathy, no thyromegaly; carotids +2/2, no bruits appreciated Lungs- clear to auscultation and percussion Heart- regular rhythm; no murmur, no gallop, no rub appreciated Abdomen- normal bowel sounds, soft, nontender, no masses or hepatosplenomegaly Extremities- + knee swelling on right. No calor or erythema. Lt hip tenderness improved. b/l sternoclavicular tenderness improved, no swelling/erythema noted. Neuro- alert, oriented x 3; PERRL, EOMI; no facial palsy; no dysarthria; motor 5/5 bilaterally; Skin- warm & dry, no rashes Discharge Data Allergies Allergy/AdvReac Type Severity Reaction Status Date / Time No Known Allergies Allergy Verified 02/01/24 07:52 Consultations 04/19/24 15:38 ED Decision to Admit Stat 04/19/24 17:04 Consult Orthopedic Surgery Routine 04/22/24 07:45 Consult Infectious Diseases Routine 04/23/24 14:36 Consult Cardiology Routine Hospital Course (1) Osteoarthritis: (2) Type 2 diabetes mellitus: (3) HLD (hyperlipidemia): (4) HTN (hypertension): (5) Status post right hip replacement: (6) Status post left hip replacement: Plan Generalized joint pain R wrist/L hip/R knee paineffusion Concern for Suspected septic arthritis, ruled out Pseudogout flares S/p steroid injection of r wrist on 04/05, completed Medrol Dosepak 1 week ago DETAIL TECHNICIAN Follows with Dr. Anderson outpatient, WBC elevated at 20K at presentation--->>>> improved to 15.3--->14.0---> 15.1-->12.31, Afebrile > 48 hrs Started empirically on IV Dapto/cefepime at presentation, now has been discontinued (last dose cefepime 04/21 and last does of dapto on 04/20). - Xrays neg for acute fractures. - Ortho evaled, feels he does not have a septic joint and has pseudogout. s/p Rt knee arthrocentesis 04/20. Pt had declined Rt knee cortisone injection until infection is ruled out per him. - 04/20 Rt knee synovial fluid: WBC 76270, has crystal consistent w/ pseudogout. - Lyme screen and DNA negative, Anaplasma smear negative, Anaplasma DNA pending. Bl Cx and Rt knee Cx -- final Cx results are out today and are neg. - D/w ID, no concern of infection, will cancel ID consult - c/w colchicine 04/23, pt reports better improvement in joint pain. Will thomas nue 3-4 more days on dc. - Pt reports overall joint pain getting better today, has been afebrile/wbc trending down off of antibiotic and all cultures are neg. - Pt is hemodynamically stable and will dc him. Hx HTN/HLD: c/w home meds. Mild global hypokinesis of LV w/ reduce EF/ Tachycardia and Paroxysmal a flutter: Patient with increased heart rate on and off historically. TSH is WNL. Echo from 01/28/2016 with normal EF of 55 to 59% and LV wall motion was normal. Echo from 04/22/2024 with EF of 40 to 45% with mild global hypokinesis. EKG from April 20, 2024 with suspected paroxysmal atrial flutter. [id number]- VASc score of 5 points. Cardiology evaluated, patient on metoprolol succinate 50 Mg daily, Eliquis started 04/24. Plan for optimizing GDMT for the patient as OP per cardio. Plan to intensify statin therapy after colchicine course. Outpatient Lexiscan nuclear stress test and Zio patch monitoring. Pt to f/u w/ cardio as OP in 2-4 weeks, pt and his has been made aware. Hyperglycemia: Will follow. Could be elevated from the steroid injections and medrol. Hgb A1C 6.3, encouraged lifestyle modification. Pt made aware to f/u w/ repeat A1c in 3 months at PCP office. Full code DVT prophylaxis: pt on eliquis Following instructions were communicated to the patient and his . Patient is being discharged with following instruction at the point of discharge: Follow-up with your primary care physician within a week time and likely you will need labs CBC/CMP/magnesium/phosphorus. You were evaluated for concern of septic arthritis, you are noted to have pseudogout. Orthopedics evaluated you while in hospital. You have been started on colchicine, you will be discharged on colchicine for next 3 to 4 days. You can use [id number] Tylenol and 4% lidocaine patch per superintendent car construction's recommendation for mild to moderate pain. You are also noted to have reduced heart function and paroxysmal atrial flutter. You have been started on blood thinner Eliquis and metoprolol. Follow-up with cardiology in 2 to 4 weeks time upon discharge, you will likely need outpatient stress test and Zio patch monitoring. Coordinate with your cardiology office to set up the test. You will also likely need increasing the dose of your statin after colchicine course is done and possibly further optimization of your cardiac medication. You will need to coordinate with your cardiology office for ongoing evaluation/management. You will need repeat A1c in 3 months, coordinate with your PCP office to set up the test. Encourage lifestyle modification for prevention of full blown diabetes in future. Take your medications as prescribed. Please make sure that you are able to get your medications today by calling your pharmacy before you leave the hospital so that your treatment continuity is not broken. Home Health Attestation I certify that this patient is under my care and that I, or a physicians teachers assistant working with me, had a face to-face encounter that meets the home health [id number] encounter requirements with this patient. The encounter with the patient was in whole, or in part, for the following medical condition, which is the primary reason for home health care (list medical condition): I certify that, based on my findings, the following services are medically necessary home health services: My clinical findings support the need for the above services because: Further, I certify that my clinical findings support that this patient is homebound (i.e. absences from home require considerable and taxing effort and are for medical reasons or [employer]ormon services or infrequently or of short duration when for other reasons) because: Certification for Home Health Services: Based on the above findings, I certify that this patient is confined to the home and needs intermittent shelter care, physical therapy and/or speech therapy or continues to need occupational therapy. The patient is under my care, and I have initiated the establishment of the plan of care. This patient will be followed by a physician who will periodically review the plan of care. Total Time Total Time Spent Total Time Spent (In Minutes): 45 Discharge Plan Discharge Items Patient Disposition: Home - Home Health Services Reason For Visit: SEPSIS Discharge Diagnosis: Generalized joint pain Right wrist/left hip/right knee pain Concern for suspected septic arthritis, ruled out Pseudogout Paroxysmal a flutter Abnormal echocardiogram Activity: Resume your previous activity Non-emergency contact: Primary Care Provider Call non-emergency contact if: you have any medication questions, your symptoms worsen, your pain is unusual for you and your temperature is above 101 Follow-up/Referrals: Kristian Carney [Physician Rock Climbing Instructor] - (Ashlyn Costa PA-C's office will contact you for a follow up appointment. Cardiology will contact you to schedule follow up visit, Lexiscan nuclear stress test and 14 day Zio Monitor. ) Ramiro Gonzalez MD [Primary Care Provider] - Diet: Heart Healthy Addtl Attending Provider Instructions: Follow-up with your primary care physician within a week time and likely you will need labs CBC/CMP/magnesium/phosphorus. You were evaluated for concern of septic arthritis, you are noted to have pseudogout. Orthopedics evaluated you while in hospital. You have been started on colchicine, you will be discharged on colchicine for next 3 to 4 days. You can use [id number]-nutlkom Tylenol and 4% lidocaine patch per superintendent car construction's recommendation for mild to moderate pain. You are also noted to have reduced heart function and paroxysmal atrial flutter. You have been started on blood thinner Eliquis and metoprolol. Follow-up with cardiology in 2 to 4 weeks time upon discharge, you will likely need outpatient stress test and Zio patch monitoring. Coordinate with your cardiology office to set up the test. You will also likely need increasing the dose of your statin after colchicine course is done and possibly further optimization of your cardiac medication. You will need to coordinate with your cardiology office for ongoing evaluation/management. You will need repeat A1c in 3 months, coordinate with your PCP office to set up the test. Encourage lifestyle modification for prevention of full blown diabetes in future. Take your medications as prescribed. Please make sure that you are able to get your medications today by calling your pharmacy before you leave the hospital so that your treatment continuity is not broken. Pending Studies at Discharge: No Stand-Alone Forms: My [employer], Smoking Cessation Medications and DC Order Prescriptions: New Eliquis 5 mg tablet 5 mg PO BID Qty: 60 0RF colchicine [Colcrys] 0.6 mg Tablet 0.6 mg PO BID 4 Days Qty: 7 0RF metoprolol succinate 50 mg Tablet Extended Release 24 Hr 50 mg PO QAM Qty: 30 0RF Continued amoxicillin 500 mg tablet 2,000 mg PO ONCE PRN (Reason: prophylaxis) Qty: 4 2RF Rx Instructions: ONE HOUR PRIOR TO DENTAL PROCEDURE atorvastatin 20 mg Tablet 20 mg PO QAM Metamucil 3.4 gram/5.4 gram Powder 1 tbsp PO QAM PRN (Reason: Constipation) lisinopril-hydrochlorothiazide 10-12.5 mg Tablet 1 tab PO QAM polyethylene glycol 3350 [Miralax] 17 gram Powder In Packet 17 g PO DAILY oxycodone 5 mg tablet 5 mg PO Q6H PRN (Reason: pain) Qty: 30 0RF Discharge Orders: Discharge Order (Routine); Ordered 04/25/24 Ordered By: Althea Link/Other Patient Handouts: A1C, 5 Steps for Eating Healthier Admission Data Admit Date/Time: 04/19/24 15:43 Attending Provider: Althea Montalvo Admit Provider: Althea Montalvo Primary Care Provider: Ramiro Gonzalez Other Providers: Althea Montalvo; Derrell Anderson; Grant Francis
[2024-04-25 16:06] VITALS: BP 110/73
[2024-04-26] MEDS ORDERED: METOPROLOL SUCC 50MG EXT REL TAB PO SCH (09:00)
== END 2024-04-25 16:32 | disposition home health service (06) | DRG 554 ==
LOC: ED 12:38 → EDINP 15:43 → SUATTDRO 15:43 → 2S 17:05